=== PATIENT | male | born 1930 | race Hispanic/Latino ===

== ENCOUNTER 2017-04-19 15:18 | Emergency (ER) | payer MEDICARE ==
[2017-04-19] MEDS ORDERED: ASPIRIN PO ONE (16:02)
[2017-04-19 16:35] LABS: Basophils % (Auto) 0.4 % (0.0-1.8); Eosinophils # (Auto) 0.1 K/mm3 (0.0-0.4); Eosinophils % (Auto) 1.5 % (0.0-4.3); Hemoglobin 13.4 gm/dl (11.8-15.2); Lymphocytes # (Auto) 1.2 K/mm3 (1.2-5.4); Mean Corpuscular HGB Conc 34 % (32-34); Mean Corpuscular Hemoglobin 34 pg (28-32); Mean Corpuscular Volume 99 fl (84-94); Monocytes # (Auto) 0.7 K/mm3 (0.0-0.8); Monocytes % (Auto) 7.4 % (0.0-7.3); Platelet Count 192 K/mm3 (140-440); Red Blood Count 3.95 M/mm3 (3.65-5.03); Red Cell Distribution Width 13.9 % (13.2-15.2)
[2017-04-19 16:44] LABS: BUN/Creatinine Ratio 26; Blood Urea Nitrogen 18 mg/dL (9-20); Calcium 9.3 mg/dL (8.4-10.2); Hemolysis Index 12
[2017-04-19] MEDS ORDERED: LIDOCAINE VISCOUS 2% PO PRN (16:54)
[2017-04-19] MEDS ORDERED: MILK OF MAGNESIA PO PRN (16:55)
--- NOTE | 2017-04-19 17:02 | Emergency Department Report ---
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 Has had 2 weeks of recurring chest pain that comes and goes even at rest and saw mainframe architect today , Dr. Elroy Jhaveri. Added 2 meds for which they are not certain but have not started. Also, took 3 nitro at home without improvement but then got better once here. Has reoccurred once with cessation since being here. Lasted about 20 minutes and then went away spontaneously. Did eat today prior to when it started which was around noon. Has DM, HL, HTN, GERD. MD Complaint: chest pain -: week(s) (2) Onset: during rest, during exertion Pain Location: substernal Pain Radiation: LUE Severity scale (0 -10): 8 Quality: pressure Consistency: intermittent Improves With: nothing Worsens With: movement Context: new medications (But has not started.) Other Symptoms: other (none) Treatments Prior to Arrival: aspirin, nitroglycerin Aspirin use within the Past 7 Days: (1) Yes - Related Data On Oral Contraceptives: No Allergies Allergy/AdvReac Type Severity Reaction Status Date / Time No Known Allergies Allergy Unverified 04/19/17 16:01 Heart Score - HEART Score History: Slightly suspicious EKG: Non-specific Age: > 65 Risk factors: > 3 risk factors or hx of atherosclerotic disease Troponin: < normal limit HEART Score: 5 ED Review of Systems ROS: Stated complaint: CHEST PAIN Other details as noted in HPI Constitutional: denies: chills, fever Eyes: denies: eye pain, eye discharge, vision change ENT: denies: ear pain, throat pain Respiratory: denies: cough, shortness of breath, wheezing Cardiovascular: chest pain. denies: palpitations Endocrine: no symptoms reported Gastrointestinal: denies: abdominal pain, nausea, diarrhea Genitourinary: denies: urgency, dysuria Musculoskeletal: denies: back pain, joint swelling, arthralgia Skin: denies: rash, lesions Neurological: denies: headache, weakness, paresthesias Psychiatric: denies: anxiety, depression Hematological/Lymphatic: denies: easy bleeding, easy bruising ED Past Medical Hx - Past Medical History Hx Hypertension: Yes Hx Diabetes: Yes Hx GERD: Yes - Surgical History Hx Coronary Stent: Yes (over 15 years ago) Hx Open Heart Surgery: Yes (2010) - Social History Smoking Status: Former Smoker Substance Use Type: None ED Physical Exam - General Limitations: No Limitations General appearance: alert, in no apparent distress - Head Head exam: Present: atraumatic, normocephalic - Eye Eye exam: Present: normal appearance - ENT ENT exam: Present: mucous membranes moist - Neck Neck exam: Present: normal inspection - Respiratory Respiratory exam: Present: normal lung sounds bilaterally. Absent: respiratory distress - Cardiovascular Cardiovascular Exam: Present: regular rate, normal rhythm. Absent: systolic murmur, diastolic murmur, rubs, gallop - GI/Abdominal GI/Abdominal exam: Present: soft, normal bowel sounds - Rectal Rectal exam: Present: deferred - Extremities Exam Extremities exam: Present: normal inspection - Back Exam Back exam: Present: normal inspection - Neurological Exam Neurological exam: Present: alert, oriented X3 - Psychiatric Psychiatric exam: Present: normal affect, normal mood - Skin Skin exam: Present: warm, dry, intact, normal color. Absent: rash ED Course Vital Signs 04/19/17 04/19/17 04/19/17 15:42 17:45 17:55 Temperature 97.6 F Pulse Rate 64 61 60 Respiratory 18 18 Rate Blood Pressure 155/77 Blood Pressure 171/73 [Right] O2 Sat by Pulse 99 98 Oximetry ED Medical Decision Making - Lab Data Result diagrams: 04/19/17 16:13 04/19/17 16:13 - EKG Data EKG shows normal: sinus rhythm (atrial paced rhythm), intervals (prolonged PA), QRS complexes (RBBB) Rate: normal - EKG Data Interpretation: no acute changes - Radiology Data Radiology results: pending interpreted by me: No acute changes - Medical Decision Making Patient did have reoccurrence of chest pain when I intially saw him that then spontaneously resolved. Initial chest pain started around noon and both sets of cardiac enzymes were normal. Nitro did not initially relieve first episode and the second episode resolved spontaneously without medication. He has had no further chest pain. He is suitable for outpatient follow up with his mainframe architect and will take the medications the mainframe architect gave him today to try since he is a poor candidate for cath per mainframe architect per family statements. We will send him home. Critical care attestation.: If time is entered above; I have spent that time in minutes in the direct care of this critically ill patient, excluding procedure time. ED Disposition Clinical Impression: Chest pain at rest Disposition: DC-01 TO HOME OR SELFCARE Is pt being admited?: No Does the pt Need Aspirin: No Condition: Good Instructions: Chest Pain (ED) Referrals: Elroy Jhaveri [Other] - 3-5 Days Time of Disposition: 20:43
[2017-04-19 21:16] VITALS: BP 128/60
--- NOTE | 2017-04-20 09:08 | XRay Report ---
FINAL REPORT EXAM: XR CHEST 1V AP HISTORY: chest pain n/ a 1605 TECHNIQUE: Chest, portable upright PRIORS: None. FINDINGS: Patient is status post median sternotomy. Pacemaker projects on the left. The heart size is normal. Pulmonary vasculature is not congested. There is some minimal dependent atelectasis at the lung bases. Remaining lungs are clear. There are no pleural effusion seen. There is no evidence of pneumothorax. IMPRESSION: There is no significant abnormality identified.
== END 2017-04-19 21:24 | disposition home or self-care (01) ==
LOC: ED 15:18
DX: R07.89 Other chest pain (principal); I10 Essential (primary) hypertension; E11.9 Type 2 diabetes mellitus without complications; K21.9 Gastro-esophageal reflux disease without esophagitis; Z95.1 Presence of aortocoronary bypass graft; Z87.891 Personal history of nicotine dependence
CPT/HCPCS: 36415; 71045; 80048; 84484; 85025; 93005; 93010; 99284

== ENCOUNTER 2018-06-30 00:13 | Emergency (ER) | payer MEDICARE ==
--- NOTE | 2018-06-30 01:08 | Emergency Department Report ---
ED Male HPI - General Chief complaint: Pain General Stated complaint: GEN.WEAKNESS/BLOOD URINE Time Seen by Provider: 06/30/18 00:35 Source: family, EMS Mode of arrival: Stretcher Limitations: No Limitations - History of Present Illness Initial comments: 87-year-old male with history of dementia presents to ED with hematuria. States patient got up and went to the bathroom to urinate and she noticed that he had gross hematuria. Patient also complained of back pain. reported subjective fever. States patient currently on Plavix. No history of kidney stones. MD Complaint: other (hematuria) -: During the night Severity: moderate Quality: aching blood in urine, fever. denies: nausea/vomiting - Related Data Previous Rx's Medication Instructions Recorded Last Taken Type Ciprofloxacin HCl [Cipro] 500 mg PO BID #14 tablet 06/30/18 Unknown Rx Allergies Allergy/AdvReac Type Severity Reaction Status Date / Time No Known Allergies Allergy Unverified 04/19/17 16:01 ED Review of Systems ROS: Stated complaint: GEN.WEAKNESS/BLOOD URINE Other details as noted in HPI Comment: Unobtainable due to pts medical conditions (hx of dementia) Gastrointestinal: denies: abdominal pain, nausea, vomiting Genitourinary: hematuria Musculoskeletal: back pain ED Past Medical Hx - Past Medical History Previous Medical History?: Yes Hx Hypertension: Yes Hx Heart Attack/AMI: Yes Hx Diabetes: Yes Hx GERD: Yes Additional medical history: Dimentia - Surgical History Hx Coronary Stent: Yes (over 15 years ago) Hx Open Heart Surgery: Yes (2010) - Social History Smoking Status: Never Smoker - Medications Home Medications: Home Medications Medication Instructions Recorded Confirmed Last Taken Type Ciprofloxacin HCl [Cipro] 500 mg PO BID #14 tablet 06/30/18 Unknown Rx ED Physical Exam - General Limitations: No Limitations General appearance: alert, in no apparent distress - Head Head exam: Present: atraumatic, normocephalic - Eye Eye exam: Present: normal appearance - ENT ENT exam: Present: mucous membranes moist - Neck Neck exam: Present: normal inspection - Respiratory Respiratory exam: Present: normal lung sounds bilaterally. Absent: respiratory distress - Cardiovascular Cardiovascular Exam: Present: regular rate, normal rhythm - GI/Abdominal GI/Abdominal exam: Present: soft, tenderness (mild suprapubic tenderness). Absent: distended - Extremities Exam Extremities exam: Present: normal inspection - Back Exam Back exam: Absent: CVA tenderness (R), CVA tenderness (L) - Neurological Exam Neurological exam: Present: alert, other (at baseline per ) - Psychiatric Psychiatric exam: Present: normal affect, normal mood - Skin Skin exam: Present: warm, dry, intact, normal color. Absent: rash ED Course Vital Signs 06/30/18 06/30/18 06/30/18 00:19 00:20 00:27 Temperature 98.5 F 98.5 F Pulse Rate 80 82 Respiratory 18 13 Rate Blood Pressure Blood Pressure 117/76 [Left] O2 Sat by Pulse 94 98 Oximetry 06/30/18 06/30/18 06/30/18 00:31 00:45 01:00 Temperature Pulse Rate 77 86 77 Respiratory 14 14 16 Rate Blood Pressure 127/58 113/62 109/55 Blood Pressure [Left] O2 Sat by Pulse 92 92 92 Oximetry 06/30/18 06/30/18 06/30/18 01:15 01:30 01:45 Temperature Pulse Rate 76 76 75 Respiratory 18 18 19 Rate Blood Pressure 107/58 108/58 108/58 Blood Pressure [Left] O2 Sat by Pulse 91 91 Oximetry 06/30/18 06/30/18 06/30/18 02:00 02:15 02:30 Temperature Pulse Rate 74 73 71 Respiratory 19 17 9 L Rate Blood Pressure 122/59 115/59 121/67 Blood Pressure [Left] O2 Sat by Pulse 91 91 95 Oximetry 06/30/18 02:45 Temperature Pulse Rate 67 Respiratory 12 Rate Blood Pressure 125/62 Blood Pressure [Left] O2 Sat by Pulse 94 Oximetry ED Medical Decision Making - Lab Data Result diagrams: 06/30/18 00:48 06/30/18 00:48 - Radiology Data Radiology results: report reviewed, image reviewed - Medical Decision Making Pt afebrile, serum WBCs normal. Renal function also normal. UA shows large blood w/ [address] negative for any findings of ureteral stones. Will treat as hemorrhagic cystitis. Levaquin given here in ED. [facility] d/c home with prescription for antibiotics and urology follow-up information. - Differential Diagnosis UTI, kidney stone, malignancy Critical care attestation.: If time is entered above; I have spent that time in minutes in the direct care of this critically ill patient, excluding procedure time. ED Disposition Clinical Impression: Hemorrhagic cystitis Disposition: DC-01 TO HOME OR SELFCARE Is pt being admited?: No Condition: Stable Instructions: Urinary Tract Infection in Men (ED) Prescriptions: Ciprofloxacin HCl [Cipro] 500 mg PO BID #14 tablet Referrals: INDIO BROWN MD [Staff Physician] - 3-5 Days Time of Disposition: 04:12
[2018-06-30 01:14] LABS: Basophils % (Auto) 0.6 % (0.0-1.8); Eosinophils % (Auto) 0.5 % (0.0-4.3); Hematocrit 37.5 % (35.5-45.6); Hemoglobin 13.2 gm/dl (11.8-15.2); Lymphocytes # (Auto) 0.7 K/mm3 (1.2-5.4); Lymphocytes % (Auto) 14.1 % (13.4-35.0); Mean Corpuscular HGB Conc 35 % (32-34); Mean Corpuscular Volume 99 fl (84-94); Monocytes # (Auto) 0.6 K/mm3 (0.0-0.8); Monocytes % (Auto) 12.7 % (0.0-7.3); Platelet Count 167 K/mm3 (140-440); Red Blood Count 3.77 M/mm3 (3.65-5.03)
[2018-06-30 01:23] LABS: Alanine Aminotransferase 14 units/L (7-56); Albumin 3.9 g/dL (3.9-5); BUN/Creatinine Ratio 29; Blood Urea Nitrogen 20 mg/dL (9-20); Calcium 9.3 mg/dL (8.4-10.2); Hemolysis Index 11
[2018-06-30 02:12] LABS: Bilirubin,Urine NEG (Negative); Blood,Urine LG (Negative); Color,Urine Yellow (Yellow); Protein,Urine <15 mg/dL mg/dL (Negative)
[2018-06-30 02:15] LABS: RBC,Urine > 182.0 /HPF (0.0-6.0)
[2018-06-30 02:49] VITALS: BP 125/62
[2018-06-30] MEDS ORDERED: LEVAQUIN 500MG/100ML 500 MG/100 ML BAG IV ONE (03:24)
--- NOTE | 2018-06-30 03:44 | Cat Scan Report ---
PROCEDURE: CT ABDOMEN PELVIS WO CON TECHNIQUE: Routine axial imaging was obtained of the abdomen and pelvis without oral or IV contrast. Sagittal and coronal reconstructions were reviewed. HISTORY: hematuria, back pain COMPARISONS: None FINDINGS: Images through lung bases reveal extensive interstitial changes of both lower lobes. There is a large hiatal hernia. The heart is mildly enlarged. The liver, gallbladder and biliary tree appear normal. The pancreas, spleen and adrenal glands appear normal. The kidneys reveal nonobstructing punctate calcifications bilaterally. There is no evidence of hydronephrosis. There are benign cortical cysts in both kidneys measuring up to 2 cm in diameter. The bowel loops are not distended. There are uncomplicated diverticula in the descending and sigmoid colon. The appendix appears normal. There is no evidence of free fluid or adenopathy. There is calcif ication of the abdominal aorta which is normal caliber. The skeletal structures reveal multilevel dis c degeneration in the lumbar spine. There is bilateral arthritic changes of the hip joints. IMPRESSION: No acute process in the abdomen and pelvis. Nonobstructing punctate calcifications in both kidneys. No evidence of hydronephrosis. Small cortical cysts in both kidneys. Chronic lung changes noted in the bases. Large hiatal hernia. Uncomplicated diverticulosis in the descending and sigmoid colon. 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 This document is electronically signed by John Diaz MD., June 30 2018 03:42:18 AM ET
== END 2018-06-30 05:30 | disposition home or self-care (01) ==
LOC: ED 00:13
DX: N30.91 Cystitis, unspecified with hematuria (principal); I10 Essential (primary) hypertension; I25.2 Old myocardial infarction; E11.9 Type 2 diabetes mellitus without complications; K21.9 Gastro-esophageal reflux disease without esophagitis; F03.90 Unspecified dementia, unspecified severity, without behavioral disturbance, psychotic disturbance, mood disturbance, and anxiety
CPT/HCPCS: 36415; 74176; 80053; 81001; 85025; 96365; 96366; 99284; J1956

== ENCOUNTER 2019-03-04 16:54 | Emergency (ER) | payer MEDICARE ==
--- NOTE | 2019-03-04 17:02 | Emergency Department Report ---
ED Neuro Deficit HPI - General Stated Complaint: DIFFICULTY TALKING Time Seen by Provider: 03/04/19 16:56 Source: family, EMS Mode of arrival: Stretcher Limitations: Altered Mental Status - History of Present Illness Initial Comments: Patient is an 88-year-old male that presents emergency room with complaints of difficulty speaking. Patient's symptoms started at 2:30 today. Patient able to move all extremities but unable to speak. states that the patient has been confused for the past 2 days. states that the inability to speak is a new symptom. states that the patient has a history of TIA. -: Sudden Location: dysarthria Presenting Symptoms: Present: Unable to Speak Clearly History of same: Yes Place: home Severity: severe Quality: constant Improves With: none Worsens With: none On Anticoagulants: No Context: sudden onset Associated Symptoms: confusion Treatments Prior to Arrival: none - Related Data Home Medications: Home Medications Medication Instructions Recorded Confirmed Last Taken Acetaminophen [Tylenol] 500 mg PO BID 03/04/19 03/04/19 Unknown B 12 1 tab PO DAILY 03/04/19 03/04/19 Unknown Clopidogrel [Plavix] 75 mg PO QPM 03/04/19 03/04/19 Unknown Isosorbide Dinitrate [Isosorbide 120 mg PO BID 03/04/19 03/04/19 Unknown Dinitrate ER] Metoprolol [Lopressor TAB] 50 mg PO TID 03/04/19 03/04/19 Unknown Pravastatin Sodium [Pravastatin] 10 mg PO QHS 03/04/19 03/04/19 Unknown Ranolazine ER [Ranexa ER] 500 mg PO DAILY 03/04/19 03/04/19 Unknown Ubidecarenone [Co Q10] 100 mg PO DAILY 03/04/19 03/04/19 Unknown Allergies/Adverse Reactions: Allergies Allergy/AdvReac Type Severity Reaction Status Date / Time No Known Allergies Allergy Verified 03/04/19 17:04 ED Review of Systems ROS: Stated complaint: DIFFICULTY TALKING Other details as noted in HPI Comment: All other systems reviewed and negative ED Past Medical Hx - Past Medical History Previous Medical History?: Yes Hx Hypertension: Yes Hx Heart Attack/AMI: Yes Hx Diabetes: Yes Hx GERD: Yes Additional medical history: Dimentia - Surgical History Past Surgical History?: Yes Hx Coronary Stent: Yes (over 15 years ago) Hx Open Heart Surgery: Yes (2010) - Family History Family history: no significant - Social History Smoking Status: Never Smoker Substance Use Type: None - Medications Home Medications: Home Medications Medication Instructions Recorded Confirmed Last Taken Type Acetaminophen [Tylenol] 500 mg PO BID 03/04/19 03/04/19 Unknown History B 12 1 tab PO DAILY 03/04/19 03/04/19 Unknown History Clopidogrel [Plavix] 75 mg PO QPM 03/04/19 03/04/19 Unknown History Isosorbide Dinitrate [Isosorbide 120 mg PO BID 03/04/19 03/04/19 Unknown History Dinitrate ER] Metoprolol [Lopressor TAB] 50 mg PO TID 03/04/19 03/04/19 Unknown History Pravastatin Sodium [Pravastatin] 10 mg PO QHS 03/04/19 03/04/19 Unknown History Ranolazine ER [Ranexa ER] 500 mg PO DAILY 03/04/19 03/04/19 Unknown History Ubidecarenone [Co Q10] 100 mg PO DAILY 03/04/19 03/04/19 Unknown History ED Neuro Physical Exam - General Limitations: Altered Mental Status General appearance: alert, in no apparent distress Suspected Stroke: Yes - Head Head exam: Present: atraumatic, normocephalic - Eye Eye exam: Present: normal appearance - ENT ENT exam: Present: mucous membranes moist - Neck Neck exam: Present: normal inspection - Respiratory Respiratory exam: Present: normal lung sounds bilaterally. Absent: respiratory distress, wheezes, rales - Cardiovascular Cardiovascular Exam: Present: regular rate, normal rhythm. Absent: systolic murmur, diastolic murmur, rubs, gallop - GI/Abdominal GI/Abdominal exam: Present: soft, normal bowel sounds. Absent: distended, tenderness, guarding - Rectal Rectal exam: Present: deferred - Extremities Exam Extremities exam: Present: normal inspection - Back Exam Back exam: Present: normal inspection - Neurological Exam Neurological exam: Present: alert, altered - NIHSS Assessment Interval: Baseline 1a. Level of Consciousness: alert/keenly responsive 1b. LOC Questions: aphasic 1c. LOC Commands: performs tasks correctly 2. Best Gaze: normal 3. Visual: no visual loss 4. Facial Palsy: normal symmetrical movement 5b. Motor Arm Right: no drift 5a. Motor Arm Left: no drift 6a. Motor Leg Left: no drift 6b. Motor Leg Right: no drift 7. Limb Ataxia: absent 8. Sensory: normal 9. Best Language: severe aphasia 10. Dysarthria: normal 11. Extinction/Inattention: no abnormality Total Score: 4 Stroke Severity: Minor Stroke - Psychiatric Psychiatric exam: Present: normal affect, normal mood - Skin Skin exam: Present: warm, dry, intact, normal color. Absent: rash ED Course Vital Signs 03/04/19 03/04/19 03/04/19 17:36 17:57 19:10 Temperature 97.8 F 98.3 F Pulse Rate 70 64 78 Respiratory 18 18 12 Rate Blood Pressure Blood Pressure 166/84 133/59 188/90 [Left] O2 Sat by Pulse 93 92 Oximetry 03/04/19 03/04/19 03/04/19 20:33 21:00 22:01 Temperature 98.2 F Pulse Rate 69 65 63 Respiratory 16 16 17 Rate Blood Pressure 130/62 104/71 Blood Pressure 120/59 [Left] O2 Sat by Pulse 94 91 92 Oximetry 03/04/19 23:13 Temperature 98.2 F Pulse Rate 68 Respiratory 16 Rate Blood Pressure Blood Pressure 124/61 [Left] O2 Sat by Pulse 95 Oximetry - Reevaluation(s) Reevaluation #1: Initial evaluation done. Code stroke initiated. 03/04/19 16:56 Reevaluation #2: Patient is speaking better. Patient initially was aphasic. 03/04/19 17:15 Reevaluation #3: Patient complaining of chest pain. Patient will have an EKG done. Patient will also have repeat troponin. Patient states his chest pain is substernal and nonradiating. 03/04/19 19:35 - Consultations Consultation #1: I Discussed case with neurologist. Neurologist saw the patient. Dr. Oconnor recommends admission for stroke work up and inpatient as well as a CTA of the head and neck in the ER. 03/04/19 17:37 Consultation #2: [facility] on-call physician consulted, I discussed the case with physician and dr steele wants to see the CTA results prior to making a decision on transfer. 03/04/19 18:39 [facility] on-call physician consulted. 03/04/19 20:39 Has been accepted to [facility]. [facility] physician Dr. Steele states that Dr. Jaquez, the [place] hospitalist has accepted the patient to be transferred to [facility]. 03/04/19 20:52 03/04/19 20:53 - Lab Data Result diagrams: 03/04/19 17:16 03/04/19 17:16 Lab Results 03/04/19 03/04/19 03/04/19 Range/Units 17:16 17:16 17:16 WBC 7.0 (4.5-11.0) K/mm3 RBC 3.80 (3.65-5.03) M/mm3 Hgb 13.3 (11.8-15.2) gm/dl Hct 37.9 (35.5-45.6) % MCV 100 H (84-94) fl MCH 35 H (28-32) pg MCHC 35 H (32-34) % RDW 13.9 (13.2-15.2) % Plt Count 201 (140-440) K/mm3 Lymph % (Auto) 23.8 (13.4-35.0) % Grainger % (Auto) 11.2 H (0.0-7.3) % Eos % (Auto) 1.8 (0.0-4.3) % Baso % (Auto) 0.9 (0.0-1.8) % Lymph # 1.7 (1.2-5.4) K/mm3 Grainger # 0.8 (0.0-0.8) K/mm3 Eos # 0.1 (0.0-0.4) K/mm3 Baso # 0.1 (0.0-0.1) K/mm3 Seg Neutrophils % 62.3 (40.0-70.0) % Seg Neutrophils # 4.3 (1.8-7.7) K/mm3 PT 13.7 (12.2-14.9) Sec. INR 1.06 (0.87-1.13) APTT 33.7 (24.2-36.6) Sec. Thrombin Time (15.1-19.6) Sec. Sodium 132 L (137-145) mmol/L Potassium 4.0 (3.6-5.0) mmol/L Chloride 93.7 L (98-107) mmol/L Carbon Dioxide 23 (22-30) mmol/L Anion Gap 19 mmol/L BUN 14 (9-20) mg/dL Creatinine 0.8 (0.8-1.5) mg/dL Estimated GFR > 60 ml/min BUN/Creatinine Ratio 18 % Glucose 152 H (75-100) mg/dL Calcium 9.3 (8.4-10.2) mg/dL Troponin T < 0.010 (0.00-0.029) ng/mL 03/04/19 03/04/19 Range/Units 17:16 20:17 WBC (4.5-11.0) K/mm3 RBC (3.65-5.03) M/mm3 Hgb (11.8-15.2) gm/dl Hct (35.5-45.6) % MCV (84-94) fl MCH (28-32) pg MCHC (32-34) % RDW (13.2-15.2) % Plt Count (140-440) K/mm3 Lymph % (Auto) (13.4-35.0) % Grainger % (Auto) (0.0-7.3) % Eos % (Auto) (0.0-4.3) % Baso % (Auto) (0.0-1.8) % Lymph # (1.2-5.4) K/mm3 Grainger # (0.0-0.8) K/mm3 Eos # (0.0-0.4) K/mm3 Baso # (0.0-0.1) K/mm3 Seg Neutrophils % (40.0-70.0) % Seg Neutrophils # (1.8-7.7) K/mm3 PT (12.2-14.9) Sec. INR (0.87-1.13) APTT (24.2-36.6) Sec. Thrombin Time 16.1 (15.1-19.6) Sec. Sodium (137-145) mmol/L Potassium (3.6-5.0) mmol/L Chloride (98-107) mmol/L Carbon Dioxide (22-30) mmol/L Anion Gap mmol/L BUN (9-20) mg/dL Creatinine (0.8-1.5) mg/dL Estimated GFR ml/min BUN/Creatinine Ratio % Glucose (75-100) mg/dL Calcium (8.4-10.2) mg/dL Troponin T < 0.010 (0.00-0.029) ng/mL - EKG Data -: EKG Interpreted by In EKG shows normal: sinus rhythm, intervals, ST-T waves Rate: normal Interpretation: LVH, other (right bundle-branch block. Wide QRS. [place] deviation.) - Radiology Data Radiology results: report reviewed CHEST 1 VIEW INDICATION / CLINICAL INFORMATION: neuro deficit. COMPARISON: 04/19/2017 FINDINGS: SUPPORT DEVICES: Pacemaker is in place on the left unchanged. HEART / MEDIASTINUM: Normal size with evidence of median sternotomy. LUNGS / PLEURA: Low lung volumes are seen with few increased markings but no infiltrate, edema or effusion. No pneumothorax. ADDITIONAL FINDINGS: No significant additional findings. IMPRESSION: 1. No significant change CT head/brain wo con INDICATION / CLINICAL INFORMATION: 88 years Male; neuro deficits <6hrs or sx present upon awakening. TECHNIQUE: Routine CT head without contrast. All CT scans at this location are performed using CT dose reduction for ALARA by means of automated exposure control. COMPARISON: None. FINDINGS: BRAIN / INTRACRANIAL CONTENTS: No acute hemorrhage, mass effect, midline shift, hydrocephalus, or acute, large territorial infarct. Chronic lacune is seen right thalamus. Extensive periventricular low density areas are seen probably due to microvascular angiopathy. Lateral ventricles and third ventricle are generous suggesting deep central involution. CRANIOCERVICAL JUNCTION: No significant abnormality. ORBITS: No significant abnormality of visualized orbits. SINUSES / MASTOIDS: No significant abnormality of the visualized paranasal sinuses or mastoid air cells. ADDITIONAL FINDINGS: None. IMPRESSION: I do not see an acute parenchymal lesion in the brain. CTA NECK WITH CONTRAST HISTORY: Weakness; difficulty speaking COMPARISON: None. TECHNIQUE: Routine CTA of the neck was performed. 3-D/MIP reformats were postprocessed. Percentage stenosis is determined by direct quantitative measurements of diseased internal carotid artery diameter compared with normal distal internal carotid artery reference segments or by criteria similar to NASCET where applicable.All CT scans at this location are performed using CT dose reduction for ALARA by means of automated exposure control CONTRAST: 100 ml of Omnipaque 350 FINDINGS: Venous contamination limits this CTA especially in the lower neck. Aortic arch: Significant atherosclerotic disease is seen in the aortic arch. Atherosclerotic calcification is seen along the origins of innominate, left common carotid and left subclavian. Cervical vertebral arteries: Dense calcification is seen in the innominate artery at the origin of right vertebral artery. However, extraosseous, foraminal, extraspinal and intradural segments of right vertebral artery are normal. Because of venous contamination, origin of left vertebral artery is not seen adequately. Foraminal segment of left vertebral artery is patent. Intradural segment of left vertebral artery is also patent. Common carotid arteries: Nonstenotic calcified atheromatous plaque is seen in t he mid segment of right common carotid artery. Left common carotid artery is normal. Carotid bifurcations: On the right side, there are findings suggesting previous endarterectomy. Right carotid bifurcation is normal. Densely calcified atheromatous plaque is seen in the left carotid bifurcation significant stenoses (more than 80%) of the distal common and proximal internal carotid artery seen Cervical internal carotid arteries: No significant abnormality. Additional findings: None. 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 - Medical Decision Making Patient is 88-year-old male that presents emergency room with complaints of aphasia and confusion for the past 2 days. Patient's at bedside. Abby ent's states she believes the aphasia started sometime today. Due to the fact we are unclear exactly when the patient started the patient is not a candidate for TPA. Neurology saw the patient. Patient had a CTA of the head and neck. CT of the head and neck shows severe stenosis. Patient's head CT negative. Patient's EKG review. Patient's labs unremarkable. Patient is a [facility] patient was transferred to [facility]. - Differential Diagnosis stroke. TIA. Weakness. Confusion. Critical Care Time: Yes Critical care time in (mins) excluding proc time.: 80 Critical care attestation.: If time is entered above; I have spent that time in minutes in the direct care of this critically ill patient, excluding procedure time. Critical Care Time: 80 minutes ED Disposition Clinical Impression: Weakness, Difficulty speaking, Aphasia Altered mental state Qualifiers: Altered mental status type: unspecified Qualified Code(s): R41.82 - Altered mental status, unspecified Chest pain Qualifiers: Chest pain type: unspecified Qualified Code(s): R07.9 - Chest pain, unspecified Carotid stenosis Qualifiers: Laterality: unspecified laterality Qualified Code(s): I65.29 - Occlusion and stenosis of unspecified carotid artery Disposition: DC/TX-70 ANOTHER TYPE HLTHCARE Is pt being admited?: No Does the pt Need Aspirin: No Condition: Critical Time of Disposition: 20:57
[2019-03-04 17:23] LABS: Basophils # (Auto) 0.1 K/mm3 (0.0-0.1); Basophils % (Auto) 0.9 % (0.0-1.8); Eosinophils # (Auto) 0.1 K/mm3 (0.0-0.4); Eosinophils % (Auto) 1.8 % (0.0-4.3); Hematocrit 37.9 % (35.5-45.6); Hemoglobin 13.3 gm/dl (11.8-15.2); Lymphocytes # (Auto) 1.7 K/mm3 (1.2-5.4); Lymphocytes % (Auto) 23.8 % (13.4-35.0); Mean Corpuscular HGB Conc 35 % (32-34); Mean Corpuscular Volume 100 fl (84-94); Monocytes # (Auto) 0.8 K/mm3 (0.0-0.8); Monocytes % (Auto) 11.2 % (0.0-7.3); Platelet Count 201 K/mm3 (140-440); Red Cell Distribution Width 13.9 % (13.2-15.2)
[2019-03-04 17:33] LABS: INR 1.06 (0.87-1.13)
[2019-03-04 17:34] LABS: Partial Thromboplastin Time 33.7 Sec. (24.2-36.6)
[2019-03-04] MEDS ORDERED: ASPIRIN 325 MG TAB PO ONE (17:38)
[2019-03-04] MEDS ORDERED: hydrALAZINE 20 MG/1 ML INJ IV ONE (17:38)
[2019-03-04] MEDS ORDERED: ASPIRIN 300 MG RECT SUPP PR ONE (17:56)
--- NOTE | 2019-03-04 17:57 | Cat Scan Report ---
CT head/brain wo con INDICATION / CLINICAL INFORMATION: 88 years Male; neuro deficits <6hrs or sx present upon awakening. TECHNIQUE: Routine CT head without contrast. All CT scans at this location are performed using CT dos e reduction for ALARA by means of automated exposure control. COMPARISON: None. FINDINGS: BRAIN / INTRACRANIAL CONTENTS: No acute hemorrhage, mass effect, midline shift, hydrocephalus, or acu te, large territorial infarct. Chronic lacune is seen right thalamus. Extensive periventricular low d ensity areas are seen probably due to microvascular angiopathy. Lateral ventricles and third ventricl e are generous suggesting deep central involution. CRANIOCERVICAL JUNCTION: No significant abnormality. ORBITS: No significant abnormality of visualized orbits. SINUSES / MASTOIDS: No significant abnormality of the visualized paranasal sinuses or mastoid air rell ls. ADDITIONAL FINDINGS: None. IMPRESSION: I do not see an acute parenchymal lesion in the brain. Signer Name: Bandar Mendoza MD Signed: 03/04/2019 5:53 PM Workstation Name: [id number]
--- NOTE | 2019-03-04 18:03 | XRay Report ---
CHEST 1 VIEW INDICATION / CLINICAL INFORMATION: neuro deficit. COMPARISON: 04/19/2017 FINDINGS: SUPPORT DEVICES: Pacemaker is in place on the left unchanged. HEART / MEDIASTINUM: Normal size with evidence of median sternotomy. LUNGS / PLEURA: Low lung volumes are seen with few increased markings but no infiltrate, edema or eff usion. No pneumothorax. ADDITIONAL FINDINGS: No significant additional findings. IMPRESSION: 1. No significant change Signer Name: Levi Kim MD Signed: 03/04/2019 5:59 PM Workstation Name: [id number]
[2019-03-04 18:08] LABS: BUN/Creatinine Ratio 18; Blood Urea Nitrogen 14 mg/dL (9-20); Calcium 9.3 mg/dL (8.4-10.2); Hemolysis Index 5
[2019-03-04] MEDS ORDERED: ASPIRIN 81 MG TAB CHEW PO ONE (18:48)
--- NOTE | 2019-03-04 18:48 | Emergency Department Report ---
ED Neuro Deficit HPI - General Chief Complaint: Neuro Symptoms/Deficit Stated Complaint: DIFFICULTY TALKING Time Seen by Provider: 03/04/19 16:56 Source: family, EMS Mode of arrival: Stretcher Limitations: Altered Mental Status - History of Present Illness Initial Comments: [facility] Tele[facility]urology Consult Services TeleStroke Metrics: LKW: Unknown. Door Time: 1654 [facility] Contacted: 1701 [facility] at Bedside: 1710 NIHSS: 1716 Decision on Alteplase: has deferred IV alteplase administration due to concerns of internal bleeding and his last known well time not being definitively known. Interventional Candidate: Likely not a candidate as his symptoms are not consistent with a large vessel proximal occlusion. CTA head and neck are in process. Chief Complaint: Altered mental status HPI: Asked to see this patient in emergent telemedicine consultation utilizing interactive audio and video technologies. Consultation was performed with assistance of ancillary / medical staff at bedside. Verbal consent to perform the examination with telemedicine was obtained. Patients agreed to proceed with the consultation for acute stroke protocol. 88-year-old right-handed white male who was brought to the emergency room by EMS as a stroke alert for altered mental status. Patient's eventually came to bedside to assist with history. Patient is currently on aspirin and Plavix. She reports that the patient has had 3 prior TIAs in the past. His first episode involved right sided weakness. There was another episode that involved right foot weakness. His last episode was just acute confusion. also states the patient has been diagnosed with vascular dementia. noted that the patient started being confused yesterday. He would have moments where he would just stare at her and not respond. However, she never noticed any focal weakness. Then today around 2:30 PM, they were sitting watching TV. He suddenly grabbed her hand and was just staring at her. He wo uld not talk at all. The tried to get the patient to talk to both his daughter and son over the phone, but the patient still not respond. Therefore, she called 911. Currently on examination, the patient remains pleasantly confused. He had no obvious neglect. He was able to recognize his . She states he would usually not know what year it is but should know the hospital. He was unable to identify that he was in the hospital. He was able to follow some commands overall. Patient had very mild right arm drifting, but had a tough time keeping his right leg up. He also had some mild slurred speech. Head CT eventually came back negative. I reviewed with the about the availability of IV alteplase. I reviewed with her about some of the potential side effects of IV alteplase to include an approximate 6% risk of symptomatic intracranial hemorrhage, internal bleeding, and/or angioedema. At the end of the day, the has deferred IV alteplase administration as his last known well time is not definitely known. This is factoring his confusion that started yesterday. was in agreement with not to proceed with IV alteplase administration. PMH: Prior TIAs x3; hypertension; diabetes mellitus; coronary artery disease status post CABG; pacemaker placement; and vascular dementia. SOC: Negative x3. Patient is . He uses a walker at baseline. FMH: Negative for stroke. ROS: 13 point review of systems were reviewed with the patients , and are all negative with the exception of the aforementioned in the history of present illness. VS: Temperature is 97.8 F, pulse 70, respiration 18, blood pressure 166/84, oxygen saturation 93% Exam: Patient is in no apparent distress. Patient appears as stated age. No obvious acute respiratory or cardiac distress. Patient is well groomed and well-nourished. 1a- LOC: Keenly responsive - 0 1b- LOC questions: Answers neither questions correctly - 2 1c- LOC commands- Performs both tasks correctly- 0 2- Gaze: Normal; no gaze paresis or gaze deviation - 0 3- Visual Navarro: normal, no Visual field deficit - 0 4- Facial movements: no facial palsy - 0 5- Upper limb motor right arm drift - 1 6- Lower limb motor right leg drift - 3 7- Limb Coordination: absent ataxia - 0 8- Sensory: no sensory loss - 0 9- Language - Mild aphasia - 1 10- Speech - Mild dysarthria - 1 11- Neglect / Extinction - none found - 0 NIHSS score: 8 Diagnostic Data: CT of the head showed no acute intracranial process WBC 7, hemoglobin 13.3, platelets 201, coagulation studies within normal limits, sodium 132, potassium 4, BUN 14, creatinine 0.8, blood glucose 152 Medical Data Reviewed: 1.Data?reviewed include clinical labs, radiology,?and medical tests; 2.Tests?results discussed w/performing or interpreting physician; 3.Obtaining/reviewing old medical records; 4.Obtaining?case history from another source; 5.Independent?review of image, tracing, or specimen. Medical Decision Making: - Extensive number of diagnosis or management options are considered below. - Extensive amount of complex data reviewed. - High risk of complication and/or morbidity or mortality are associated with differential diagnostic considerations below. - There may be?uncertain?outcome and increased probability of prolonged functio nal impairment or high probability of severe prolonged functional impairment associated with some of these differential diagnosis. Differential Diagnosis for Stroke: 1.?Cardioembolic?stroke 2. Small vessel disease/lacune 3. Thromboembolic, sszhvt-[id number] mechanism 4.?Hypercoagulable?state-related infarct 5. Transient ischemic attack 6. Thrombotic mechanism, large artery disease Assessment: 1. Altered mental status with possible left MCA stroke 2. Prior TIAs 3. Hypertension 4. Diabetes Mellitus 5. Coronary artery disease status post CABG 6. Vascular dementia 7. Pacemaker placement Recommendations: Patient can be admitted to the hospital for further work-up of his symptoms. Maintain the patient on aspirin and Plavix for now. Allow permissive hypertension. Metabolic and infectious work-up per primary team. Can check MRI brain without contrast if pacemaker is MRI compatible. If it is not MRI compatible, then can repeat head CT in 24 hours to see if he has any new evolving cerebral ischemia. CTA head and neck have been ordered and are in process. Check echocardiogram to gauge his cardiac function. Maintain the patient on telemetry to look for paroxysmal atrial fibrillation. Check hemoglobin A1c and lipid panel. Consult PT, OT, and ST. Continue supportive care. Plan of care was discussed with the patient's . Thank you for allowing [facility] to participate in the care of your patient. Please call me, Dr. Copeland, with any questions at [phone]. Case discussed with the ER staff and Dr. Glover. Critical Care notation: I was called to see this critical patient emergently. I personally evaluated this critical patient for acute stroke evaluation, and determining their eligibility for IV Alteplase and interventional therapies. I have spent approximately 15 minutes with the patient, including time at bedside, time discussing the case with other physicians, reviewing plan of care, and time independently reviewing the records and scans. Location: dysarthria History of same: Yes Place: home Severity: severe Quality: constant Improves With: none Worsens With: none On Anticoagulants: No - Related Data Home Medications: Home Medications Medication Instructions Recorded Confirmed Last Taken Acetaminophen [Tylenol] 500 mg PO BID 03/04/19 03/04/19 Unknown B 12 1 tab PO DAILY 03/04/19 03/04/19 Unknown Clopidogrel [Plavix] 75 mg PO QPM 03/04/19 03/04/19 Unknown Isosorbide Dinitrate [Isosorbide 120 mg PO BID 03/04/19 03/04/19 Unknown Dinitrate ER] Metoprolol [Lopressor TAB] 50 mg PO TID 03/04/19 03/04/19 Unknown Pravastatin Sodium [Pravastatin] 10 mg PO QHS 03/04/19 03/04/19 Unknown Ranolazine ER [Ranexa ER] 500 mg PO DAILY 03/04/19 03/04/19 Unknown Ubidecarenone [Co Q10] 100 mg PO DAILY 03/04/19 03/04/19 Unknown Allergies/Adverse Reactions: Allergies Allergy/AdvReac Type Severity Reaction Status Date / Time No Known Allergies Allergy Verified 03/04/19 17:04 ED Review of Systems ROS: Stated complaint: DIFFICULTY TALKING Other details as noted in HPI ED Past Medical Hx - Past Medical History Previous Medical History?: Yes Hx Hypertension: Yes Hx Heart Attack/AMI: Yes Hx Diabetes: Yes Hx GERD: Yes Additional medical history: Dimentia - Surgical History Past Surgical History?: Yes Hx Coronary Stent: Yes (over 15 years ago) Hx Open Heart Surgery: Yes (2010) Hx Pacemaker: Yes - Social History Smoking Status: Never Smoker Substance Use Type: None - Medications Home Medications: Home Medications Medication Instructions Recorded Confirmed Last Taken Type Acetaminophen [Tylenol] 500 mg PO BID 03/04/19 03/04/19 Unknown History B 12 1 tab PO DAILY 03/04/19 03/04/19 Unknown History Clopidogrel [Plavix] 75 mg PO QPM 03/04/19 03/04/19 Unknown History Isosorbide Dinitrate [Isosorbide 120 mg PO BID 03/04/19 03/04/19 Unknown History Dinitrate ER] Metoprolol [Lopressor TAB] 50 mg PO TID 03/04/19 03/04/19 Unknown History Pravastatin Sodium [Pravastatin] 10 mg PO QHS 03/04/19 03/04/19 Unknown History Ranolazine ER [Ranexa ER] 500 mg PO DAILY 03/04/19 03/04/19 Unknown History Ubidecarenone [Co Q10] 100 mg PO DAILY 03/04/19 03/04/19 Unknown History ED Neuro Physical Exam - General Limitations: Altered Mental Status General appearance: alert, in no apparent distress Suspected Stroke: Yes - NIHSS Assessment Interval: Baseline 1a. Level of Consciousness: alert/keenly responsive 1b. LOC Questions: answers no questions correctly 1c. LOC Commands: performs tasks correctly 2. Best Gaze: normal 3. Visual: no visual loss 4. Facial Palsy: normal symmetrical movement 5b. Motor Arm Right: drift 5a. Motor Arm Left: no drift 6a. Motor Leg Left: no drift 6b. Motor Leg Right: no gravity effort 7. Limb Ataxia: absent 8. Sensory: normal 9. Best Language: mild/moderate aphasia 10. Dysarthria: mild/moderate dysarthria 11. Extinction/Inattention: no abnormality Total Score: 8 Stroke Severity: Moderate Stroke ED Course Vital Signs 03/04/19 03/04/19 17:36 17:57 Temperature 97.8 F Pulse Rate 70 64 Respiratory 18 18 Rate Blood Pressure 166/84 133/59 [Left] O2 Sat by Pulse 93 Oximetry - Lab Data Result diagrams: 03/04/19 17:16 03/04/19 17:16 Lab Results 03/04/19 03/04/19 03/04/19 Range/Units 17:16 17:16 17:16 WBC 7.0 (4.5-11.0) K/mm3 RBC 3.80 (3.65-5.03) M/mm3 Hgb 13.3 (11.8-15.2) gm/dl Hct 37.9 (35.5-45.6) % MCV 100 H (84-94) fl MCH 35 H (28-32) pg MCHC 35 H (32-34) % RDW 13.9 (13.2-15.2) % Plt Count 201 (140-440) K/mm3 Lymph % (Auto) 23.8 (13.4-35.0) % [place] % (Auto) 11.2 H (0.0-7.3) % Eos % (Auto) 1.8 (0.0-4.3) % Baso % (Auto) 0.9 (0.0-1.8) % Lymph # 1.7 (1.2-5.4) K/mm3 [place] # 0.8 (0.0-0.8) K/mm3 Eos # 0.1 (0.0-0.4) K/mm3 Baso # 0.1 (0.0-0.1) K/mm3 Seg Neutrophils % 62.3 (40.0-70.0) % Seg Neutrophils # 4.3 (1.8-7.7) K/mm3 PT 13.7 (12.2-14.9) Sec. INR 1.06 (0.87-1.13) APTT 33.7 (24.2-36.6) Sec. Thrombin Time (15.1-19.6) Sec. Sodium 132 L (137-145) mmol/L Potassium 4.0 (3.6-5.0) mmol/L Chloride 93.7 L (98-107) mmol/L Carbon Dioxide 23 (22-30) mmol/L Anion Gap 19 mmol/L BUN 14 (9-20) mg/dL Creatinine 0.8 (0.8-1.5) mg/dL Estimated GFR > 60 ml/min BUN/Creatinine Ratio 18 % Glucose 152 H (75-100) mg/dL Calcium 9.3 (8.4-10.2) mg/dL Troponin T < 0.010 (0.00-0.029) ng/mL 03/04/ Range/Units 17:16 WBC (4.5-11.0) K/mm3 RBC (3.65-5.03) M/mm3 Hgb (11.8-15.2) gm/dl Hct (35.5-45.6) % MCV (84-94) fl MCH (28-32) pg MCHC (32-34) % RDW (13.2-15.2) % Plt Count (140-440) K/mm3 Lymph % (Auto) (13.4-35.0) % [place] % (Auto) (0.0-7.3) % Eos % (Auto) (0.0-4.3) % Baso % (Auto) (0.0-1.8) % Lymph # (1.2-5.4) K/mm3 [place] # (0.0-0.8) K/mm3 Eos # (0.0-0.4) K/mm3 Baso # (0.0-0.1) K/mm3 Seg Neutrophils % (40.0-70.0) % Seg Neutrophils # (1.8-7.7) K/mm3 PT (12.2-14.9) Sec. INR (0.87-1.13) APTT (24.2-36.6) Sec. Thrombin Time 16.1 (15.1-19.6) Sec. Sodium (137-145) mmol/L Potassium (3.6-5.0) mmol/L Chloride (98-107) mmol/L Carbon Dioxide (22-30) mmol/L Anion Gap mmol/L BUN (9-20) mg/dL Creatinine (0.8-1.5) mg/dL Estimated GFR ml/min BUN/Creatinine Ratio % Glucose (75-100) mg/dL Calcium (8.4-10.2) mg/dL Troponin T (0.00-0.029) ng/mL Critical care attestation.: If time is entered above; I have spent that time in minutes in the direct care of this critically ill patient, excluding procedure time. ED Disposition Clinical Impression: Altered mental state Disposition: DC-09 OP ADMIT IP TO THIS HOSP Is pt being admited?: Yes Does the pt Need Aspirin: Yes Condition: Stable
--- NOTE | 2019-03-04 20:27 | Cat Scan Report ---
CTA NECK WITH CONTRAST HISTORY: Weakness; difficulty speaking COMPARISON: None. TECHNIQUE: Routine CTA of the neck was performed. 3-D/MIP reformats were postprocessed. Percentage s tenosis is determined by direct quantitative measurements of diseased internal carotid artery diamete r compared with normal distal internal carotid artery reference segments or by criteria similar to NA SCET where applicable.All CT scans at this location are performed using CT dose reduction for ALARA b y means of automated exposure control CONTRAST: 100 ml of Omnipaque 350 FINDINGS: Venous contamination limits this CTA especially in the lower neck. Aortic arch: Significant atherosclerotic disease is seen in the aortic arch. Atherosclerotic calcific ation is seen along the origins of innominate, left common carotid and left subclavian. Cervical vertebral arteries: Dense calcification is seen in the innominate artery at the origin of ri ght vertebral artery. However, extraosseous, foraminal, extraspinal and intradural segments of right vertebral artery are normal. Because of venous contamination, origin of left vertebral artery is not seen adequately. Foraminal se gment of left vertebral artery is patent. Intradural segment of left vertebral artery is also patent. Common carotid arteries: Nonstenotic calcified atheromatous plaque is seen in the mid segment of righ t common carotid artery. Left common carotid artery is normal. Carotid bifurcations: On the right side, there are findings suggesting previous endarterectomy. Righ t carotid bifurcation is normal. Densely calcified atheromatous plaque is seen in the left carotid bi furcation significant stenoses (more than 80%) of the distal common and proximal internal carotid art tamir seen Cervical internal carotid arteries: No significant abnormality. Additional findings: None. 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 Signer Name: Bandar Mendoza MD Signed: 03/04/2019 8:23 PM Workstation Name: [id number]
--- NOTE | 2019-03-04 20:38 | Cat Scan Report ---
CTA HEAD WITH CONTRAST HISTORY: Weakness; speech difficulty COMPARISON: None. TECHNIQUE: Routine non-contrast CT Head, CTA of the head and post-contrast CT Head are performed. 3-D /MIP reformats postprocessed. All CT scans at this location are performed using CT dose reduction for ALARA by means of automated exposure control CONTRAST: 100 ml of Omnipaque 350 FINDINGS: CTA Head: Intracranial vertebral arteries: Atherosclerotic calcification is seen intradural segments of both ve rtebral arteries. Decreased CT flow density is seen in the left vertebral artery. Basilar artery: No significant abnormality. Posterior cerebral arteries: No significant abnormality. Intracranial internal carotid arteries: Dense calcification is seen in the internal carotid arteries from clinoidal to the ophthalmic segment. I am unable to evaluate the lumen of the internal carotid a rtery at these levels. Communicating segment of right internal carotid artery is normal. On the left side, approximately 60 % stenosis seen in the communicating segment. Anterior cerebral arteries: No significant abnormality. Middle cerebral arteries: No significant abnormality. Dural venous sinuses:Not optimally opacified. No significant abnormality. Additional findings: None. IMPRESSION: 1. [place] of [place] is normal. Both the M1 segments are normal Dense calcification in the internal carotid arteries from skull base to ophthalmic segment Signer Name: Bandar Mendoza MD Signed: 03/04/2019 8:34 PM Workstation Name: [id number]
[2019-03-04 23:13] VITALS: BP 124/61
== END 2019-03-04 23:14 | disposition other institution (70) ==
LOC: ED 16:54
DX: I65.29 Occlusion and stenosis of unspecified carotid artery (principal); R07.89 Other chest pain; R41.82 Altered mental status, unspecified; R47.01 Aphasia; I10 Essential (primary) hypertension; I25.2 Old myocardial infarction; I25.10 Atherosclerotic heart disease of native coronary artery without angina pectoris; E11.9 Type 2 diabetes mellitus without complications; K21.9 Gastro-esophageal reflux disease without esophagitis; F03.90 Unspecified dementia, unspecified severity, without behavioral disturbance, psychotic disturbance, mood disturbance, and anxiety; Z95.5 Presence of coronary angioplasty implant and graft; Z98.890 Other specified postprocedural states; Z79.899 Other long term (current) drug therapy; Z95.0 Presence of cardiac pacemaker; Z95.1 Presence of aortocoronary bypass graft; Z86.73 Personal history of transient ischemic attack (TIA), and cerebral infarction without residual deficits
CPT/HCPCS: 36415; 70450; 70496; 70498; 71045; 80048; 82962; 84484; 85025; 85610; 85670; 85730; 93005; 93010; 99291; 99292; Q9967

== ENCOUNTER 2019-06-15 12:50 | Inpatient (IN) | payer MEDICARE ==
--- NOTE | 2019-06-15 13:04 | Emergency Department Report ---
ED Neuro Deficit HPI - General Chief Complaint: Neuro Symptoms/Deficit Stated Complaint: STROKE Time Seen by Provider: 06/15/19 12:58 Source: family, EMS, RN notes reviewed, old records reviewed Mode of arrival: Stretcher Limitations: Altered Mental Status, Physical Limitation - History of Present Illness Initial Comments: Primary care doctor: Cain cheung The patient is an 88-year-old gentleman. The patient has a history of vascular dementia, stroke versus TIA, high cholesterol, and diabetes. He is brought to the hospital with his and EMS with a concern of having a stroke. The patient is demented and a poor historian, and cannot describe exacerbating or relieving factors. As per his , his last known well time is 12:15 PM. Stroke deficits include left-sided weakness in the arm and leg, facial droop His symptoms have apparently been constant for the past hour. As per the , there were no exacerbating or relieving factors. No recent trauma, surgeries, strokes, and the patient takes aspirin and Plavix, but otherwise, does not take systemic anticoagulation. Patient not able to describe qualitative nature of his symptoms, exacerbating or relieving factors. -: Sudden, hour(s) Location: left face, left arm, left leg Presenting Symptoms: Present: Weak/Paralyzed One Side, Facial Droop/Numbness History of same: Yes Place: other Quality: other Improves With: other Worsens With: other On Anticoagulants: Yes Context: sudden onset, other Associated Symptoms: other (As per ) - Related Data Home Medications: Home Medications Medication Instructions Recorded Confirmed Last Taken Clopidogrel [Plavix] 75 mg PO QPM 03/04/19 06/15/19 06/14/19 18:00 Isosorbide Dinitrate [Isosorbide 120 mg PO BID 03/04/19 06/15/19 06/15/19 09:00 Dinitrate ER] Metoprolol [Lopressor TAB] 50 mg PO TID 03/04/19 06/15/19 06/15/19 09:00 Pravastatin Sodium [Pravastatin] 10 mg PO QHS 03/04/19 06/15/19 06/14/19 18:00 Ranolazine ER [Ranexa ER] 500 mg PO DAILY 03/04/19 06/15/19 06/14/19 18:00 Ubidecarenone [Co Q10] 100 mg PO DAILY 03/04/19 06/15/19 06/15/19 09:00 Aspirin [Aspirin BABY CHEW TAB] 81 mg PO DAILY 06/15/19 06/15/19 06/14/19 18:00 Cyanocobalamin (Vitamin B-12) 1,000 mcg PO DAILY 06/15/19 06/15/19 06/15/19 09:00 [Vitamin B-12] Nitroglycerin [Nitrostat] 0.4 mg SL Q5M PRN 06/15/19 06/15/19 06/09/19 19:12 Ranitidine HCl 300 mg PO DAILY 06/15/19 06/15/19 06/15/19 09:00 metFORMIN 500 mg PO BID 06/15/19 06/15/19 06/15/19 09:00 Allergies/Adverse Reactions: Allergies Allergy/AdvReac Type Severity Reaction Status Date / Time No Known Allergies Allergy Verified 03/04/19 17:04 ED Review of Systems ROS: Stated complaint: STROKE Other details as noted in HPI Comment: Unobtainable due to pts medical conditions Neurological: weakness ED Past Medical Hx - Past Medical History Hx Hypertension: Yes Hx Heart Attack/AMI: Yes Hx Diabetes: Yes Hx GERD: Yes Additional medical history: Dementia - Surgical History Hx Coronary Stent: Yes (over 15 years ago) Hx Open Heart Surgery: Yes (2010) Hx Pacemaker: Yes - Social History Smoking Status: Never Smoker - Medications Home Medications: Home Medications Medication Instructions Recorded Confirmed Last Taken Type Clopidogrel [Plavix] 75 mg PO QPM 03/04/19 06/15/19 06/14/19 18:00 History Isosorbide Dinitrate [Isosorbide 120 mg PO BID 03/04/19 06/15/19 06/15/19 09:00 History Dinitrate ER] Metoprolol [Lopressor TAB] 50 mg PO TID 03/04/19 06/15/19 06/15/19 09:00 History Pravastatin Sodium [Pravastatin] 10 mg PO QHS 03/04/19 06/15/19 06/14/19 18:00 History Ranolazine ER [Ranexa ER] 500 mg PO DAILY 03/04/19 06/15/19 06/14/19 18:00 History Ubidecarenone [Co Q10] 100 mg PO DAILY 11/06/15/19 06/15/19 09:00 History Aspirin [Aspirin BABY CHEW TAB] 81 mg PO DAILY 06/15/19 06/15/19 06/14/19 18:00 History Cyanocobalamin (Vitamin B-12) 1,000 mcg PO DAILY 06/15/19 06/15/19 06/15/19 09:00 History [Vitamin B-12] Nitroglycerin [Nitrostat] 0.4 mg SL Q5M PRN 06/15/19 06/15/19 06/09/19 19:12 History Ranitidine HCl 300 mg PO DAILY 06/15/19 06/15/19 06/15/19 09:00 History metFORMIN 500 mg PO BID 06/15/19 06/15/19 06/15/19 09:00 History ED Neuro Physical Exam - General Limitations: Altered Mental Status, Physical Limitation General appearance: alert, anxious Suspected Stroke: Yes - Head Head exam: Present: atraumatic, normocephalic - Eye Eye exam: Present: normal appearance, EOMI - ENT ENT exam: Present: normal exam, normal orophraynx, mucous membranes moist, normal external ear exam - Neck Neck exam: Present: normal inspection, full ROM. Absent: tenderness, meningismus - Respiratory Respiratory exam: Present: normal lung sounds bilaterally. Absent: respiratory distress - Cardiovascular Cardiovascular Exam: Present: regular rate, normal rhythm, normal heart sounds. Absent: bradycardia, tachycardia, irregular rhythm, systolic murmur, diastolic murmur, rubs, gallop - GI/Abdominal GI/Abdominal exam: Present: soft. Absent: distended, tenderness, guarding, rebound, rigid, pulsatile mass - Rectal Rectal exam: Present: deferred - Extremities Exam Extremities exam: Present: normal inspection, other (2+ pulses noted in the bilateral upper and lower extremities. There is no palpable cord. negative Homans sign. Muscular compartments are soft. The pelvis is stable.) - Back Exam Back exam: Present: normal inspection, full ROM. Absent: tenderness, CVA tenderness (R), CVA tenderness (L), paraspinal tenderness, vertebral tenderness - Neurological Exam Neurological exam: Present: alert, oriented X3 - NIHSS Assessment Interval: Baseline 1a. Level of Consciousness: arousable/minor stimuli 1b. LOC Questions: answers 1 question correctly 1c. LOC Commands: performs 1 task correctly 2. Best Gaze: partial gaze palsy 3. Visual: partial hemianopia 4. Facial Palsy: minor paralysis 5b. Motor Arm Right: drift 5a. Motor Arm Left: no movement 6a. Motor Leg Left: no movement 6b. Motor Leg Right: drift 7. Limb Ataxia: absent (Unable to assess) 8. Sensory: mild/moderate sensory loss (Unable to assess) 9. Best Language: mild/moderate aphasia 10. Dysarthria: mild/moderate dysarthria 11. Extinction/Inattention: visual/tactile inattention Total Score: 20 Stroke Severity: Moderate to Severe Stroke - Psychiatric Psychiatric exam: Present: anxious - Skin Skin exam: Present: warm, dry, intact, normal color. Absent: rash ED Course Vital Signs 06/15/19 06/15/19 06/15/19 13:21 14:13 14:22 Temperature 97.5 F L Pulse Rate 61 69 66 Respiratory 16 16 Rate Blood Pressure 123/86 Blood Pressure 173/78 160/74 [Left] O2 Sat by Pulse 94 95 Oximetry 06/15/19 06/15/19 15:03 17:16 Temperature Pulse Rate 64 Respiratory 16 Rate Blood Pressure Blood Pressure 105/47 [Left] O2 Sat by Pulse 96 94 Oximetry - Reevaluation(s) Reevaluation #1: 06/15/19 13:16 Differential diagnosis, including but not limited to: Stroke, pneumonia, urinary tract infection Assessment and plan: 88-year-old gentleman presenting with left-sided weakness, neglect, facial droop, suspicious for acute ischemic stroke. Accu-Chek within normal limits, and he does not have medical contraindications to TPA administration at this time. He does not have decision-making capacity secondary to vascular dementia. His who is at the bedside is alert, oriented, clinically sober, and has decision-making capacity. She indicates the patient is DO NOT RESUSCITATE, DO NOT INTUBATE as per his wishes. We talked about the risks and benefits of TPA, including the risk of fatal bleeding event, hemorrhagic conversion, GI bleed, and . His is alert and oriented, and has given verbal consent for tPA administration. This is witnessed by multiple nurses, including Jaime Bolivar, and Marquita Robin. In addition, the patient was seen by consulting stroke neurology, Dr. Medellin, who also concurred that the patient met criteria for TPA administration. An emergency CTA head and neck have been ordered to assess for possible large vessel occlusion. Patient had a CTA head and neck done at this hospital February 2019, which showed left-sided disease and stenosis. At the moment, we are awaiting formal CT interpretation from radiology, although our gross interpretation of the head CT appears to be negative for acute findings. Reevaluation #2: 06/15/19 14:33 Dr Yunier Holman to admit he states he will follow up the cta head/neck - Consultations Consultation #1: 06/15/19 13:45 Discussed with [place] physician, Dr. Gillette, who advises that since patient received TPA, he should not be transferred for at least 24 hours, unless he requires emergent endovascular intervention for large vessel occlusion. Therefore, she authorizes the patient to be admitted to this hospital, if his CT angiogram does not demonstrate any findings that would require emergency intervention for large vessel occlusion. - Lab Data Result diagrams: 06/16/19 03:57 06/16/19 03:57 Lab Results 06/15/19 06/15/19 06/15/19 Range/Units 13:11 13:11 13:11 WBC 6.7 (4.5-11.0) K/mm3 RBC 3.79 (3.65-5.03) M/mm3 Hgb 13.0 (11.8-15.2) gm/dl Hct 37.4 (35.5-45.6) % MCV 99 H (84-94) fl MCH 34 H (28-32) pg MCHC 35 H (32-34) % RDW 14.0 (13.2-15.2) % Plt Count 221 (140-440) K/mm3 Lymph % (Auto) 23.1 (13.4-35.0) % [place] % (Auto) 13.6 H (0.0-7.3) % Eos % (Auto) 2.4 (0.0-4.3) % Baso % (Auto) 0.9 (0.0-1.8) % Lymph # 1.5 (1.2-5.4) K/mm3 [place] # 0.9 H (0.0-0.8) K/mm3 Eos # 0.2 (0.0-0.4) K/mm3 Baso # 0.1 (0.0-0.1) K/mm3 Seg Neutrophils % 60.0 (40.0-70.0) % Seg Neutrophils # 4.0 (1.8-7.7) K/mm3 PT 13.6 (12.2-14.9) Sec. INR 1.03 (0.87-1.13) APTT 27.8 (24.2-36.6) Sec. Thrombin Time 16.0 (15.1-19.6) Sec. Sodium 130 L (137-145) mmol/L Potassium 5.3 H (3.6-5.0) mmol/L Chloride 93.6 L (98-107) mmol/L Carbon Dioxide 22 (22-30) mmol/L Anion Gap 20 mmol/L BUN 14 (9-20) mg/dL Creatinine 0.6 L (0.8-1.5) mg/dL Estimated GFR > 60 ml/min BUN/Creatinine Ratio 23 % Glucose 128 H (75-100) mg/dL POC Glucose (70-105) Calcium 9.5 (8.4-10.2) mg/dL Magnesium 1.70 (1.7-2.3) mg/dL Total Creatine Kinase (55-170) units/L CK-MB (CK-2) (0.0-4.0) ng/mL CK-MB (CK-2) Rel Index (0-4) Troponin T < 0.010 (0.00-0.029) ng/mL 06/15/19 06/15/19 Range/Units 13:11 13:17 WBC (4.5-11.0) K/mm3 RBC (3.65-5.03) M/mm3 Hgb (11.8-15.2) gm/dl Hct (35.5-45.6) % MCV (84-94) fl MCH (28-32) pg MCHC (32-34) % RDW (13.2-15.2) % Plt Count (140-440) K/mm3 Lymph % (Auto) (13.4-35.0) % [place] % (Auto) (0.0-7.3) % Eos % (Auto) (0.0-4.3) % Baso % (Auto) (0.0-1.8) % Lymph # (1.2-5.4) K/mm3 [place] # (0.0-0.8) K/mm3 Eos # (0.0-0.4) K/mm3 Baso # (0.0-0.1) K/mm3 Seg Neutrophils % (40.0-70.0) % Seg Neutrophils # (1.8-7.7) K/mm3 PT (12.2-14.9) Sec. INR (0.87-1.13) APTT (24.2-36.6) Sec. Thrombin Time (15.1-19.6) Sec. Sodium (137-145) mmol/L Potassium (3.6-5.0) mmol/L Chloride (98-107) mmol/L Carbon Dioxide (22-30) mmol/L Anion Gap mmol/L BUN (9-20) mg/dL Creatinine (0.8-1.5) mg/dL Estimated GFR ml/min BUN/Creatinine Ratio % Glucose (75-100) mg/dL POC Glucose 112 H (70-105) Calcium (8.4-10.2) mg/dL Magnesium (1.7-2.3) mg/dL Total Creatine Kinase 51 L (55-170) units/L CK-MB (CK-2) 2.4 (0.0-4.0) ng/mL CK-MB (CK-2) Rel Index 4.7 H (0-4) Troponin T (0.00-0.029) ng/mL - EKG Data -: EKG Interpreted by Me 06/15/19 13:18 The EKG shows an atrial paced rhythm, good capture, left axis deviation, right bundle branch block, appears unchanged from prior EKG from February 2019. This is not consistent with ST elevation myocardial infarction. - Radiology Data Radiology results: report reviewed, image reviewed Print Report Referring Physician: KAYE BAXTER Patient Name: EDDY FIGUEROA Date of : 1930 Sex: Male Report Date: 2019-06-15 Report Status: Finalized Findings [facility] [address] [place] [address] Cat Scan Report Signed Patient: EDDY FIGUEROA MR#: [id number] : 1930 Acct:[id number] Age/Sex: 88 / M ADM Date: 06/15/19 Loc: ED Attending Dr: Ordering Physician: KAYE BAXTER MD Date of Service: 06/15/19 Procedure(s): CT head/brain wo con Accession Number(s): [id number] cc: KAYE BAXTER MD CT head without contrast HISTORY: neuro deficits <6hrs or sx present upon awakening. TECHNIQUE: Axial imaging performed from the skull apex through the skull base without the use of contrast. All CT scans at this location are performed using CT dose reduction for ALARA by means of automated exposure control. COMPARISON: CT head from 03/04/2019 FINDINGS: Parenchyma: No acute intracranial hemorrhage or parenchymal abnormality. 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 Small lacunar infarct near the right thalamus. Ventricles: There is mild diffuse brain atrophy with commensurate ventricular enlargement which is likely age appropriate. Soft tissues: Soft tissues including the orbits appear normal. Bones: No acute osseous abnormality. Sinuses: Sinuses and mastoid air cells are clear. IMPRESSION: No acute abnormality. COMMUNICATION: Time of Communication (DAY GUARD/CDT): 12:24 PM Licensed Practitioner Receiving Report: Dr. Baxter Signer Name: Tay Santiago MD Signed: 06/15/2019 1:24 PM Workstation Name: [id number] Transcribed By: JW Dictated By: Tay Santiago MD Electronically Authenticated By: Tay Santiago MD Signed Date/Time: 06/15/19 1324 Print Report Referring Physician: KAYE BAXTER Patient Name: EDDY FIGUEROA Date of : 1930 Sex: Male Report Date: 2019-06-15 Report Status: Finalized Findings [facility] [address] [place] [address] XRay Report Signed Patient: EDDY FIGUEROA MR#: [id number] : 1930 Acct:[id number] Age/Sex: 88 / M ADM Date: 06/15/19 Loc: ED Attending Dr: Ordering Physician: KAYE BAXTER MD Date of Service: 06/15/19 Procedure(s): XR chest 1V ap Accession Number(s): [id number] cc: KAYE BAXTER MD Fluoro Time In Minutes: CHEST 1 VIEW 06/15/2019 1:22 PM INDICATION / CLINICAL INFORMATION: acute cva. COMPARISON: 03/04/19 FINDINGS: SUPPORT DEVICES: Stable satisfactory device positioning. HEART / MEDIASTINUM: Stable. LUNGS / PLEURA: No significant pulmonary or pleural abnormality. No pneumothorax. ADDITIONAL FINDINGS: No significant additional findings. IMPRESSION: 1. No acute findings. Signer Name: Gacria Estevez MD Signed: 06/15/2019 1:46 PM Workstation Name: [id number] Transcribed By: MISHEL Dictated By: Garcia Estevez MD Electronically A uthenticated By: Garcia Estevez MD Signed Date/Time: 06/15/19 1346 DD/ 1344 - Core Measures Measure Exclusions: not indicated - Thrombolytic Inclusion/Exclusion Thrombolytic Inclusion Criteria: Ischemic Stroke Onset< 3h, NIH Stroke Scale Deficit, Negative CT Scan for ICH, Age 18 or Older, Glucose of 50-400mg/dl Critical Care Time: Yes Critical care time in (mins) excluding proc time.: 60 Critical care attestation.: If time is entered above; I have spent that time in minutes in the direct care of this critically ill patient, excluding procedure time. ED Disposition Clinical Impression: Acute CVA (cerebrovascular accident) Disposition: DC-09 OP ADMIT IP TO THIS HOSP Is pt being admited?: Yes Condition: Critical
[2019-06-15] MEDS ORDERED: ALTEPLASE 100 MG INJ KIT ONE (13:13)
[2019-06-15] MEDS ORDERED: SODIUM CHLORIDE 0.9% 50 ML IVPB IV ONE (13:18)
[2019-06-15] MEDS ORDERED: ALTEPLASE 100 MG INJ KIT IV ONE ×2 (13:18)
[2019-06-15 13:23] LABS: Basophils # (Auto) 0.1 K/mm3 (0.0-0.1); Basophils % (Auto) 0.9 % (0.0-1.8); Eosinophils # (Auto) 0.2 K/mm3 (0.0-0.4); Eosinophils % (Auto) 2.4 % (0.0-4.3); Hematocrit 37.4 % (35.5-45.6); Lymphocytes # (Auto) 1.5 K/mm3 (1.2-5.4); Lymphocytes % (Auto) 23.1 % (13.4-35.0); Mean Corpuscular HGB Conc 35 % (32-34); Mean Corpuscular Volume 99 fl (84-94); Monocytes # (Auto) 0.9 K/mm3 (0.0-0.8); Monocytes % (Auto) 13.6 % (0.0-7.3); Platelet Count 221 K/mm3 (140-440); Red Blood Count 3.79 M/mm3 (3.65-5.03)
--- NOTE | 2019-06-15 13:27 | Emergency Department Report ---
ED Neuro Deficit HPI - General Chief Complaint: Neuro Symptoms/Deficit Stated Complaint: STROKE Time Seen by Provider: 06/15/19 12:58 Source: family, EMS, RN notes reviewed, old records reviewed Mode of arrival: Stretcher Limitations: Altered Mental Status, Physical Limitation - History of Present Illness Initial Comments: [facility] Date of Service: 06/15/2019 12:54:34 Impression: Rule Out Acute Ischemic Stroke Right Hemispheric Infarct MCA Distribution Infarct Anterior Circulation Infarct Comments/Sign-Out: Patient with hx of hypertension, PPM, vascular dementia, CABG, TIA who presents after sudden onset of left sided weakness, aphasia and left facial droop. Patient with no contraindications to tpa, discussed risks and benefits with spouse who agrees to proceed. Will need CTA head and neck givne hemiparesis, VF deficit and aphasia. Mechanism of Stroke: Possible Thromboembolic Possible Cardioembolic Metrics: Last Known Well: 06/15/2019 12:15:00 [employer] Notification Time: 06/15/2019 12:54:10 Arrival Time: 06/15/2019 12:47:00 Stamp Time: 06/15/2019 12:54:34 Time First Login Attempt: 06/15/2019 13:01:30 Video Start Time: 06/15/2019 13:01:30 Symptoms: left facial droop and left sided weakness and aphasia NIHSS Start Assessment Time: 06/15/2019 13:10:28 tPA Verbal Order Time: 06/15/2019 13:12:29 Patient is a candidate for tPA. tPA CPOE Order Time: 06/15/2019 13:12:31 Needle Time: 06/15/2019 13:21:04 Weight Noted by Staff: [address] head showed no acute hemorrhage or acute core infarct. CT head was reviewed and results were: prelim no acute bleed. Clinical Presentation is Suggestive of Large Vessel Occlusive Disease, Recommendations are as Follows CTA Head and Neck. CT Perfusion. Advanced Imaging to be Reviewed by ED Provider and KAY. ED Physician notified of diagnostic impression and management plan on 06/15/2019 13:12:37 Verbal Consent to tPA: I have explained to the Patient and Family the nature of the patients condition, the use of tPA fibrinolytic agent, and the benefits to be reasonably expected compared with alternative approaches. I have discussed the likelihood of major risks or complications of this procedure including (if applicable) but not limited to loss of limb function, brain damage, paralysis, hemorrhage, infection, complications from transfusion of blood components, drug reactions, blood clots and loss of life. I have also indicated that with any procedure there is always the possibility of an unexpected complication. All questions were answered and Patient and Family express understanding of the treatment plan and consent to the treatment. Our recommendations are outlined below. Recommendations: IV tPA recommended. tPA bolus given Without Complication. IV tPA Total Dose 70.2 mg IV tPA Bolus Dose 7.0 mg IV tPA Infusion Dose - 63.2 mg Routine post tPA monitoring including neuro checks and blood pressure control during/after treatment Monitor blood pressure Check blood pressure and NIHSS every 15 min for 2 h, then every 30 min for 6 h, and finally every hour for 16 h. Manage Blood Pressure per post tPA protocol. Admission to ICU CT brain 24 hours post tPA NPO until swallowing screen performed and passed No antiplatelet agents or anticoagulants (including heparin for DVT prophylaxis) in first 24 hours No Gudino catheter, nasogastric tube, arterial catheter or central venous catheter for 24 hr, unless absolutely necessary Telemetry Bedside swallow evaluation HOB less than 30 degrees Euglycemia Avoid hyperthermia, PRN acetaminophen DVT prophylaxis Inpatient Neurology Consultation Stroke evaluation as per inpatient neurology recommendations Additional Recommendations: Start Atorvastatin Lipid Panel Check Hgb A1c Dysphagia Screen DVT Prophylaxis Hyperglycemia Treatment as per Primary Team PT/ OT / Speech Therapy Consultation Neurology to Be Consulted for Inpatient Routine Consultation Echocardiogram, TTE Discussed with ED physician History of Present Illness: Patient is a 88 year old Male. Patient was brought by EMS for symptoms of left facial droop and left sided weakness and aphasia Patient with PMH of CABG, TIA, PPM, on plavix and asa only. per he is on no anticoagulants, no prior ICH, no tumor, liver or kidney disease. no recent surgeries, no GI bleed. no chest pain He was hospitalized in february for symptoms of speech abnormalities, normal CT head. CT head showed no acute hemorrhage or acute core infarct. CT head was reviewed. Last seen normal was within 4.5 hours. There is no history of hemorrhagic complications or intracranial hemorrhage. There is no history of Recent Anticoagulants. There is no history of recent major surgery. There is no history of recent stroke. Examination: BP(148/80), Pulse(78), Blood Glucose(112) 1A: Level of Consciousness - Arouses to minor stimulation + 1 1B: Ask Month and Age - 1 Question Right + 1 1C: Blink Eyes & Squeeze Hands - Performs Both Tasks + 0 2: Test Horizontal Extraocular Movements - Normal + 0 3: Test Visual Navarro - Complete Hemianopia + 2 4: Test Facial Palsy (Use Grimace if Obtunded) - Partial paralysis (lower face) + 2 5A: Test Left Arm Motor Drift - Drift, hits bed + 2 5B: Test Right Arm Motor Drift - No Drift for 10 Seconds + 0 6A: Test Left Leg Motor Drift - No Effort Against Clover + 3 6B: Test Right Leg Motor Drift - No Drift for 5 Seconds + 0 7: Test Limb Ataxia (FNF/Heel-Moon) - No Ataxia + 0 8: Test Sensation - Mild-Moderate Loss: Less Sharp/More Dull + 1 9: Test Language/Aphasia - Mild-Moderate Aphasia: Some Obvious Changes, Without Significant Limitation + 1 10: Test Dysarthria - Severe Dysarthria: Unintelligble Slurring or Out of Proportion to Aphasia + 2 11: Test Extinction/Inattention - No abnormality + 0 NIHSS Score: 15 Patient was informed the Neurology Consult would happen via TeleHealth consult by way of interactive audio and video telecommunications and consented to receiving care in this manner. Due to the immediate potential for life-threatening deterioration due to underlying acute neurologic illness, I spent 35 minutes providing critical care. This time includes time for face to face visit via telemedicine, review of medical records, imaging studies and discussion of findings with providers, the patient and/or family. Dr Elaine Patel [facility] Case [id number] Location: left face, left arm, left leg History of same: Yes Place: other Quality: other Improves With: other Worsens With: other On Anticoagulants: Yes - Related Data Home Medications: Home Medications Medication Instructions Recorded Confirmed Last Taken Acetaminophen [Tylenol] 500 mg PO BID 03/04/19 03/04/19 Unknown B 12 1 tab PO DAILY 03/04/19 03/04/19 Unknown Clopidogrel [Plavix] 75 mg PO QPM 03/04/19 03/04/19 Unknown Isosorbide Dinitrate [Isosorbide 120 mg PO BID 03/04/19 03/04/19 Unknown Dinitrate ER] Metoprolol [Lopressor TAB] 50 mg PO TID 03/04/19 03/04/19 Unknown Pravastatin Sodium [Pravastatin] 10 mg PO QHS 03/04/19 03/04/19 Unknown Ranolazine ER [Ranexa ER] 500 mg PO DAILY 03/04/19 03/04/19 Unknown Ubidecarenone [Co Q10] 100 mg PO DAILY 03/04/19 03/04/19 Unknown Allergies/Adverse Reactions: Allergies Allergy/AdvReac Type Severity Reaction Status Date / Time No Known Allergies Allergy Verified 03/04/19 17:04 ED Review of Systems ROS: Stated complaint: STROKE Other details as noted in HPI Neurological: weakness ED Past Medical Hx - Past Medical History Hx Hypertension: Yes Hx Heart Attack/AMI: Yes Hx Diabetes: Yes Hx GERD: Yes Additional medical history: Dementia - Surgical History Hx Coronary Stent: Yes (over 15 years ago) Hx Open Heart Surgery: Yes (2010) Hx Pacemaker: Yes - Social History Smoking Status: Never Smoker - Medications Home Medications: Home Medications Medication Instructions Recorded Confirmed Last Taken Type Acetaminophen [Tylenol] 500 mg PO BID 03/04/19 03/04/19 Unknown History B 12 1 tab PO DAILY 03/04/19 03/04/19 Unknown History Clopidogrel [Plavix] 75 mg PO QPM 03/04/19 03/04/19 Unknown History Isosorbide Dinitrate [Isosorbide 120 mg PO BID 03/04/19 03/04/19 Unknown History Dinitrate ER] Metoprolol [Lopressor TAB] 50 mg PO TID 03/04/19 03/04/19 Unknown History Pravastatin Sodium [Pravastatin] 10 mg PO QHS 03/04/19 03/04/19 Unknown History Ranolazine ER [Ranexa ER] 500 mg PO DAILY 03/04/19 03/04/19 Unknown History Ubidecarenone [Co Q10] 100 mg PO DAILY 03/04/19 03/04/19 Unknown History ED Neuro Physical Exam - General Limitations: Altered Mental Status, Physical Limitation General appearance: alert, anxious Suspected Stroke: Yes - exam: Present: normal inspection - Extremities Exam Extremities exam: Present: normal inspection - Back Exam Back exam: Present: normal inspection - Neurological Exam Neurological exam: Present: motor sensory deficit - NIHSS Assessment Interval: Baseline 1a. Level of Consciousness: arousable/minor stimuli ED Course Vital Signs 06/15/19 13:21 Pulse Rate 61 Blood Pressure 123/86 - Lab Data Lab Results 06/15/19 Range/Units 13:17 POC Glucose 112 H (70-105) Critical care attestation.: If time is entered above; I have spent that time in minutes in the direct care of this critically ill patient, excluding procedure time. ED Disposition Is pt being admited?: Yes Does the pt Need Aspirin: No Condition: Stable
--- NOTE | 2019-06-15 13:29 | Cat Scan Report ---
CT head without contrast HISTORY: neuro deficits <6hrs or sx present upon awakening. TECHNIQUE: Axial imaging performed from the skull apex through the skull base without the use of con trast. All CT scans at this location are performed using CT dose reduction for ALARA by means of aut omated exposure control. COMPARISON: CT head from 03/04/2019 FINDINGS: Parenchyma: No acute intracranial hemorrhage or parenchymal abnormality. Symmetric periventricular h ypodensities are likely in keeping with microangiopathy. Small lacunar infarct near the right thalamu s. Ventricles: There is mild diffuse brain atrophy with commensurate ventricular enlargement which is l ikely age appropriate. Soft tissues: Soft tissues including the orbits appear normal. Bones: No acute osseous abnormality. Sinuses: Sinuses and mastoid air cells are clear. IMPRESSION: No acute abnormality. COMMUNICATION: Time of Communication (USED CAR LOT ATTENDANT/CDT): 12:24 PM Licensed Practitioner Receiving Report: Dr. Baxter Signer Name: Tay Santiago MD Signed: 06/15/2019 1:24 PM Workstation Name: [id number]
[2019-06-15 13:41] LABS: BUN/Creatinine Ratio 23; Blood Urea Nitrogen 14 mg/dL (9-20); Calcium 9.5 mg/dL (8.4-10.2); Hemolysis Index 105
--- NOTE | 2019-06-15 13:50 | XRay Report ---
CHEST 1 VIEW 06/15/2019 1:22 PM INDICATION / CLINICAL INFORMATION: acute cva. COMPARISON: 03/04/19 FINDINGS: SUPPORT DEVICES: Stable satisfactory device positioning. HEART / MEDIASTINUM: Stable. LUNGS / PLEURA: No significant pulmonary or pleural abnormality. No pneumothorax. ADDITIONAL FINDINGS: No significant additional findings. IMPRESSION: 1. No acute findings. Signer Name: Garcia Estevez MD Signed: 06/15/2019 1:46 PM Workstation Name: [id number]
[2019-06-15 13:55] LABS: INR 1.03 (0.87-1.13)
[2019-06-15 13:56] LABS: Partial Thromboplastin Time 27.8 Sec. (24.2-36.6)
[2019-06-15 14:00] LABS: Creatine Kinase MB 2.4 ng/mL (0.0-4.0)
--- NOTE | 2019-06-15 14:56 | Cat Scan Report ---
HEAD CT ANGIOGRAM 06/15/2019 HISTORY: 88-year-old female with "neuro deficits" FINDINGS: Contrast-enhanced CT angiographic images of the intracranial circulation were obtained. In addition to the axial images, sagittal and coronal reformatted images were obtained. In addition, 3 p juliette MIP reconstructions were produced. There is no evidence of acute abnormality. Atherosclerotic vascular calcifications are associated with the carotid arteries bilaterally at the l evel of the cavernous sinuses. There is no evidence of significant stenosis here. Vascular contours at the level of the skull base and rosebud of Leary are otherwise unremarkable. IMPRESSION: No significant abnormality. All CT scans at this location are performed using dose reduction to ALARA by means of automated expos ure control. Signer Name: Peña He MD Signed: 06/15/2019 2:52 PM Workstation Name: [id number]
--- NOTE | 2019-06-15 15:13 | Cat Scan Report ---
NECK CT ANGIOGRAM 06/15/2019 HISTORY: 88-year-old female with neuro deficits FINDINGS: Contrast-enhanced CT angiographic images of the neck were obtained. In addition to the axia l images, sagittal and coronal reformatted images were obtained. In addition, 3 plane MIP reconstruct ions were produced. NASCET like criteria were used in this evaluation. The left bifurcation, prominent calcified atherosclerotic plaque is present, associated with high-gra de stenosis at the origin of the internal carotid artery. This stenosis would be in the range of 90%. At the right bifurcation, some mild atherosclerotic irregularity is present, with no evidence of sign ificant or measurable stenosis. Vertebral artery contours are unremarkable. Atherosclerotic vascular calcifications are present at the level of the aortic arch,, with possible m oderate stenosis at the origin of the left common carotid artery. There is significant reflux of injected contrast material into the venous structures in the neck. The re appears to be stenosis along the course of the left brachycephalic vein, which also contains pacem yusuf leads. 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 All CT scans at this location are performed using dose reduction to ALARA by means of automated expos ure control. Signer Name: Peña He MD Signed: 06/15/2019 3:09 PM Workstation Name: [id number]
[2019-06-15 17:13] LABS: Bilirubin,Urine NEG (Negative); Blood,Urine NEG (Negative); Color,Urine Yellow (Yellow); Protein,Urine <15 mg/dL mg/dL (Negative); Urobilinogen,Urine < 2.0 mg/dL (<2.0)
--- NOTE | 2019-06-15 19:22 | History and Physical Report ---
History of Present Illness Date of examination: 06/15/19 Date of admission: 06/15/19 14:35 Chief complaint: L side weakness- acute onset History of present illness: 88-year-old gentleman with history of vascular dementia, stroke versus TIA, high cholesterol, and diabetes brought to the hospital with his and EMS with a concern of having a stroke. The patient is demented and a poor historian, and cannot describe exacerbating or relieving factors. As per his , his last known well time is 12:15 PM. Stroke deficits include left-sided weakness in the arm and leg, facial droop. His symptoms have apparently been constant for the past hour. As per the , there were no exacerbating or relieving factors. No recent trauma, surgeries, strokes, and the patient takes aspirin and Plavix, but otherwise, does not take systemic anticoagulation. Patient not able to describe qualitative nature of his symptoms, exacerbating or relieving factors.COde stroke was called and TPA given as he was in the windowperiod.Some improvement in L side weakness after TP A. Past Medical History Hypertension: Yes Heart Attack/AMI: Yes Diabetes: Yes GERD: Yes Additional medical history: Dementia Surgical History Coronary Stent: Yes (over 15 years ago) Open Heart Surgery: Yes (2010) Pacemaker: Yes Social History Smoking Status: Never Smoker Medications Home Medications: Home Medications Medication Instructions Recorded Confirmed Last Taken Type Clopidogrel [Plavix] 75 mg PO QPM 03/04/19 06/15/19 Unknown History Isosorbide Dinitrate [Isosorbide 120 mg PO BID 03/04/19 06/15/19 Unknown History Dinitrate ER] Metoprolol [Lopressor TAB] 50 mg PO TID 03/04/19 06/15/19 Unknown History Pravastatin Sodium [Pravastatin] 10 mg PO QHS 03/04/19 06/15/19 Unknown History Ranolazine ER [Ranexa ER] 500 mg PO DAILY 03/04/19 06/15/19 Unknown History Ubidecarenone [Co Q10] 100 mg PO DAILY 03/04/19 06/15/19 Unknown History Ranitidine HCl 300 mg PO DAILY 06/15/19 06/15/19 Unknown History metFORMIN 500 mg PO BID 06/15/19 06/15/19 Unknown History Review of Systems ROS: Stated complaint: STROKE Other details as noted in HPI Comment: Unobtainable due to pts medical conditions Neurological: weakness Medications and Allergies Allergies Allergy/AdvReac Type Severity Reaction Status Date / Time No Known Allergies Allergy Verified 03/04/19 17:04 Home Medications Medication Instructions Recorded Confirmed Last Taken Type Clopidogrel [Plavix] 75 mg PO QPM 03/04/19 06/15/19 06/14/19 18:00 History Isosorbide Dinitrate [Isosorbide 120 mg PO BID 03/04/19 06/15/19 06/15/19 09:00 History Dinitrate ER] Metoprolol [Lopressor TAB] 50 mg PO TID 03/04/19 06/15/19 06/15/19 09:00 History Pravastatin Sodium [Pravastatin] 10 mg PO QHS 03/04/19 06/15/19 06/14/19 18:00 History Ranolazine ER [Ranexa ER] 500 mg PO DAILY 03/04/19 06/15/19 06/14/19 18:00 History Ubidecarenone [Co Q10] 100 mg PO DAILY 03/04/19 06/15/19 06/15/19 09:00 History Aspirin [Aspirin BABY CHEW TAB] 81 mg PO DAILY 06/15/19 06/15/19 06/14/19 18:00 History Cyanocobalamin (Vitamin B-12) 1,000 mcg PO DAILY 06/15/19 06/15/19 06/15/19 09:00 History [Vitamin B-12] Nitroglycerin [Nitrostat] 0.4 mg SL Q5M PRN 06/15/19 06/15/19 06/09/19 19:12 History Ranitidine HCl 300 mg PO DAILY 06/15/19 06/15/19 06/15/19 09:00 History metFORMIN 500 mg PO BID 06/15/19 06/15/19 06/15/19 09:00 History Exam - Constitutional Vitals: Temp Pulse Resp BP Pulse Ox 97.5 F L 67 20 154/86 96 06/15/19 14:22 06/15/19 18:30 06/15/19 18:30 06/15/19 18:30 06/15/19 18:30 General appearance: Present: no acute distress, well-nourished - EENT Eyes: Present: PERRL ENT: hearing intact, clear oral mucosa - Neck Neck: Present: supple, normal ROM - Respiratory Respiratory effort: normal Respiratory: bilateral: CTA - Cardiovascular Heart rate: 78 Rhythm: regular Heart Sounds: Present: S1 & S2. Absent: rub, click - Extremities Extremities: no ischemia, pulses intact, pulses symmetrical, No edema Peripheral Pulses: within normal limits - Abdominal General gastrointestinal: Present: soft, non-tender, non-distended, normal bowel sounds Male genitourinary: Present: normal - Integumentary Integumentary: Present: clear, warm, dry - Musculoskeletal Musculoskeletal: left sided weakness (3/5 power LUE and LLE) - Psychiatric Psychiatric: appropriate mood/affect, intact judgment & insight - Neurologic Neurologic: CNII-XII intact, moves all extremities MCKENZIE score - Mckenzie Score Aspirin use within the Past 7 Days: (1) Yes Results - Labs CBC & Chem 7: 06/16/19 03:57 06/16/19 03:57 Labs: Laboratory Last Values WBC 6.7 K/mm3 (4.5-11.0) 06/15/19 13:11 RBC 3.79 M/mm3 (3.65-5.03) 06/15/19 13:11 Hgb 13.0 gm/dl (11.8-15.2) 06/15/19 13:11 Hct 37.4 % (35.5-45.6) 06/15/19 13:11 MCV 99 fl (84-94) H 06/15/19 13:11 MCH 34 pg (28-32) H 06/15/19 13:11 MCHC 35 % (32-34) H 06/15/19 13:11 RDW 14.0 % (13.2-15.2) 06/15/19 13:11 Plt Count 221 K/mm3 (140-440) 06/15/19 13:11 Lymph % (Auto) 23.1 % (13.4-35.0) 06/15/19 13:11 Mckean % (Auto) 13.6 % (0.0-7.3) H 06/15/19 13:11 Eos % (Auto) 2.4 % (0.0-4.3) 06/15/19 13:11 Baso % (Auto) 0.9 % (0.0-1.8) 06/15/19 13:11 Lymph # 1.5 K/mm3 (1.2-5.4) 06/15/19 13:11 Mckean # 0.9 K/mm3 (0.0-0.8) H 06/15/19 13:11 Eos # 0.2 K/mm3 (0.0-0.4) 06/15/19 13:11 Baso # 0.1 K/mm3 (0.0-0.1) 06/15/19 13:11 Seg Neutrophils % 60.0 % (40.0-70.0) 06/15/19 13:11 Seg Neutrophils # 4.0 K/mm3 (1.8-7.7) 06/15/19 13:11 PT 13.6 Sec. (12.2-14.9) 06/15/19 13:11 INR 1.03 (0.87-1.13) 06/15/19 13:11 APTT 27.8 Sec. (24.2-36.6) 06/15/19 13:11 Thrombin Time 16.0 Sec. (15.1-19.6) 06/15/19 13:11 Sodium 130 mmol/L (137-145) L 06/15/19 13:11 Potassium 5.3 mmol/L (3.6-5.0) H 06/15/19 13:11 Chloride 93.6 mmol/L (98-107) L 06/15/19 13:11 Carbon Dioxide 22 mmol/L (22-30) 06/15/19 13:11 Anion Gap 20 mmol/L 06/15/19 13:11 BUN 14 mg/dL (9-20) 06/15/19 13:11 Creatinine 0.6 mg/dL (0.8-1.5) L 06/15/19 13:11 Estimated GFR > 60 ml/min 06/15/19 13:11 BUN/Creatinine Ratio 23 % 06/15/19 13:11 Glucose 128 mg/dL (75-100) H 06/15/19 13:11 POC Glucose 112 (70-105) H 06/15/19 13:17 Calcium 9.5 mg/dL (8.4-10.2) 06/15/19 13:11 Magnesium 1.70 mg/dL (1.7-2.3) 06/15/19 13:11 Total Creatine Kinase 51 units/L (55-170) L 06/15/19 13:11 CK-MB (CK-2) 2.4 ng/mL (0.0-4.0) 06/15/19 13:11 CK-MB (CK-2) Rel Index 4.7 (0-4) H 06/15/19 13:11 Troponin T < 0.010 ng/mL (0.00-0.029) 06/15/19 13:11 Urine Color Yellow (Yellow) 06/15/19 17:00 Urine Turbidity Clear (Clear) 06/15/19 17:00 Urine pH 6.0 (5.0-7.0) 06/15/19 17:00 Ur Specific [place] 1.036 (1.003-1.030) H 06/15/19 17:00 Urine Protein <15 mg/dl mg/dL (Negative) 06/15/19 17:00 Urine Glucose (UA) Neg mg/dL (Negative) 06/15/19 17:00 Urine Ketones Neg mg/dL (Negative) 06/15/19 17:00 Urine Blood Neg (Negative) 06/15/19 17:00 Urine Nitrite Neg (Negative) 06/15/19 17:00 Urine Bilirubin Neg (Negative) 06/15/19 17:00 Urine Urobilinogen < 2.0 mg/dL (<2.0) 06/15/19 17:00 Ur Leukocyte Esterase Neg (Negative) 06/15/19 17:00 Urine WBC (Auto) 1.0 /HPF (0.0-6.0) 06/15/19 17:00 Urine RBC (Auto) 1.0 /HPF (0.0-6.0) 06/15/19 17:00 Short CBC 06/15/19 06/16/19 Range/Units 13:11 03:57 WBC 6.7 7.7 (4.5-11.0) K/mm3 Hgb 13.0 13.5 (11.8-15.2) gm/dl Hct 37.4 38.4 (35.5-45.6) % Plt Count 221 217 (140-440) K/mm3 BMP 06/15/19 06/16/19 13:11 03:57 Sodium 130 L 134 L Potassium 5.3 H 4.8 Chloride 93.6 L 94.9 L Carbon Dioxide 22 25 BUN 14 11 Creatinine 0.6 L 0.6 L Glucose 128 H 105 H Calcium 9.5 9.7 Cardiac Enzymes 06/15/19 06/15/19 Range/Units 13:11 13:11 Total Creatine Kinase 51 L (55-170) units/L CK-MB (CK-2) 2.4 (0.0-4.0) ng/mL Troponin T < 0.010 (0.00-0.029) ng/mL Liver Function 06/16/19 Range/Units 03:57 Total Bilirubin 0.70 (0.1-1.2) mg/dL AST 15 (5-40) units/L ALT 12 (7-56) units/L Alkaline Phosphatase 41 (35-129) units/L Albumin 4.3 (3.9-5) g/dL Urine 06/15/19 Range/Units 17:00 Urine Color Yellow (Yellow) Urine pH 6.0 (5.0-7.0) Ur Specific [place] 1.036 H (1.003-1.030) Urine Protein <15 mg/dl (Negative) mg/dL Urine Glucose (UA) Neg (Negative) mg/dL - Imaging and Cardiology EKG: report reviewed (Atrial paced rhythm 68min RBBB LAFB) CT Scan - head: report reviewed Imaging and Cardiology: CTA Head/neck High grade stenosis L ICA Assessment and Plan Advance Directives: Yes (Full code) VTE prophylaxis?: Chemical Plan of care discussed with patient/family: Yes - Patient Problems (1) Acute CVA (cerebrovascular accident) Current Visit: Yes Status: Acute Plan to address problem: S/p TPA Improving DAPT from tuesday CVA protocol PT/OT requested Statins (2) HTN (hypertension) Current Visit: Yes Status: Chronic Qualifiers: Hypertension type: essential hypertension Qualified Code(s): I10 - Essential (primary) hypertension Plan to address problem: Cont Antihyertensives (3) CAD (coronary artery disease) Current Visit: Yes Status: Chronic Qualifiers: Coronary Disease-Associated Artery/Lesion type: [place] artery [place] vs. transplanted heart: [place] heart Plan to address problem: On DAPT (4) HLD (hyperlipidemia) Current Visit: Yes Status: Chronic Qualifiers: Hyperlipidemia type: mixed hyperlipidemia Qualified Code(s): E78.2 - Mixed hyperlipidemia Plan to address problem: Cont statins (5) T2DM (type 2 diabetes mellitus) Current Visit: Yes Status: Chronic Qualifiers: Diabetes mellitus manager intermediate insulin use: unspecified residential insulin use status Plan to address problem: Coverage for now Check A1c (6) DVT prophylaxis Current Visit: Yes Status: Acute Plan to address problem: On Scd's
[2019-06-15] MEDS ORDERED: UBIDECARENONE 100 MG PO SCH (20:15)
[2019-06-15] MEDS ORDERED: RANITIDINE HCL 300 MG PO SCH (20:15)
[2019-06-15] MEDS ORDERED: ACETAMINOPHEN 325 MG TAB PO PRN (20:26)
[2019-06-15] MEDS ORDERED: ONDANSETRON 4 MG/2 ML INJ IV PRN (20:26)
[2019-06-15] MEDS ORDERED: MORPHINE 2 MG/1 ML INJ IV PRN (20:27)
[2019-06-15] MEDS ORDERED: SODIUM CHLORIDE 0.9% 1000 ML 1,000 ML IV SCH (20:30)
[2019-06-15 21:25] LABS: Chol/HDL Ratio 2.95 %
[2019-06-15] MEDS: metFORMIN 500 MG TAB PO SCH (21:36)
[2019-06-15] MEDS: RANOLAZINE ER 500 MG TAB 12HR PO SCH (21:36)
[2019-06-15] MEDS: CYANOCOBALAMIN (VIT B-12) 1000 MCG TAB PO SCH (21:36)
[2019-06-15] MEDS: ISOSORBIDE DINITRATE 20 MG TAB PO SCH (21:37)
[2019-06-15] MEDS ORDERED: FAMOTIDINE 20 MG TAB PO SCH (22:00)
[2019-06-15] MEDS ORDERED: NON-FORMULARY EACH (Pravastatin Sodium [Pravastatin] 10 MG) PO SCH (22:00)
[2019-06-15] MEDS ORDERED: ISOSORBIDE DINITRATE 120 MG PO SCH (22:00)
[2019-06-15] MEDS ORDERED: NON-FORMULARY EACH (Metformin 500 MG) PO SCH (22:00)
[2019-06-15] MEDS ORDERED: PRAVASTATIN 20 MG TAB PO SCH (22:00)
[2019-06-15] MEDS: FAMOTIDINE 20 MG/2 ML INJ IV SCH (22:34)
[2019-06-16 04:46] LABS: Basophils # (Auto) 0.1 K/mm3 (0.0-0.1); Basophils % (Auto) 0.9 % (0.0-1.8); Eosinophils # (Auto) 0.2 K/mm3 (0.0-0.4); Eosinophils % (Auto) 2.9 % (0.0-4.3); Hematocrit 38.4 % (35.5-45.6); Hemoglobin 13.5 gm/dl (11.8-15.2); Lymphocytes # (Auto) 1.1 K/mm3 (1.2-5.4); Lymphocytes % (Auto) 14.5 % (13.4-35.0); Mean Corpuscular HGB Conc 35 % (32-34); Mean Corpuscular Volume 98 fl (84-94); Monocytes # (Auto) 0.9 K/mm3 (0.0-0.8); Monocytes % (Auto) 11.2 % (0.0-7.3); Platelet Count 217 K/mm3 (140-440); Red Cell Distribution Width 13.9 % (13.2-15.2)
[2019-06-16 05:15] LABS: Alanine Aminotransferase 12 units/L (7-56); Albumin 4.3 g/dL (3.9-5); BUN/Creatinine Ratio 18; Blood Urea Nitrogen 11 mg/dL (9-20); Calcium 9.7 mg/dL (8.4-10.2); Hemolysis Index 7
[2019-06-16] MEDS: METOPROLOL TARTRATE 50 MG TAB PO SCH ×3 (08:00→21:55)
[2019-06-16] MEDS: INSULIN LISPRO 100 UNIT/ML SUB-Q SCH ×4 (08:15→21:55)
[2019-06-16] MEDS: FAMOTIDINE 20 MG/2 ML INJ IV SCH ×2 (10:20→21:55)
[2019-06-16] MEDS: RANOLAZINE ER 500 MG TAB 12HR PO SCH (10:21)
[2019-06-16] MEDS: ISOSORBIDE DINITRATE 20 MG TAB PO SCH ×2 (10:21→21:54)
[2019-06-16] MEDS: metFORMIN 500 MG TAB PO SCH (10:21)
[2019-06-16] MEDS: CYANOCOBALAMIN (VIT B-12) 1000 MCG TAB PO SCH (10:21)
[2019-06-16] MEDS ORDERED: PNEUMOCOCCAL 23 Valent 0.5 ML VIAL IM ONE (12:00)
--- NOTE | 2019-06-16 13:11 | Progress Note ---
Subjective Date of service: 06/16/19 Interval history: PATIENT SEEN ON FOLLOW UP FROM ed FROM 'S DESCRIPTION SOUNDS LIKE THERE WAS STROKE NOW THE STROKE SCALE IS ZERO, NO FOCAL FINDINGS AND FULL RECOVERY IS NOTED FROM NEURO EPISODE vs STABLE SHOULD BE ABLE TO EAT WILL FOLLOW Objective - Vital Sign Vital Signs - 12hr 06/16/19 06/16/19 06/16/19 01:31 02:00 02:31 Temperature Pulse Rate 65 61 61 Pulse Rate [ From Monitor] Pulse Rate [ 60 Left Arm] Respiratory 17 14 13 Rate Respiratory 13 Rate [Left Arm] Blood Pressure 158/62 149/63 155/67 Blood Pressure 149/63 [Left Arm] O2 Sat by Pulse Oximetry O2 Sat by Pulse 96 Oximetry [Left Arm] 06/16/19 06/16/19 06/16/19 03:00 03:01 03:16 Temperature 98.4 F Pulse Rate 62 Pulse Rate [ From Monitor] Pulse Rate [ 60 Left Arm] Respiratory 13 Rate Respiratory 13 Rate [Left Arm] Blood Pressure 169/69 Blood Pressure 169/69 [Left Arm] O2 Sat by Pulse Oximetry O2 Sat by Pulse 96 Oximetry [Left Arm] 06/16/19 06/16/19 06/16/19 03:31 04:00 04:01 Temperature Pulse Rate 65 66 66 Pulse Rate [ From Monitor] Pulse Rate [ 60 Left Arm] Respiratory 15 13 Rate Respiratory 13 Rate [Left Arm] Blood Pressure 180/81 204/88 Blood Pressure 204/88 [Left Arm] O2 Sat by Pulse Oximetry O2 Sat by Pulse 96 Oximetry [Left Arm] 06/16/19 06/16/19 06/16/19 04:29 04:31 05:00 Temperature Pulse Rate 61 76 Pulse Rate [ From Monitor] Pulse Rate [ 60 Left Arm] Respiratory 14 10 L 28 H Rate Respiratory 13 Rate [Left Arm] Blood Pressure 176/68 190/84 Blood Pressure 190/84 [Left Arm] O2 Sat by Pulse 95 Oximetry O2 Sat by Pulse 96 Oximetry [Left Arm] 06/16/19 06/16/19 06/16/19 05:30 06:00 06:01 Temperature Pulse Rate 64 60 Pulse Rate [ From Monitor] Pulse Rate [ 60 Left Arm] Respiratory 11 L 23 Rate Respiratory 13 Rate [Left Arm] Blood Pressure 195/88 191/90 Blood Pressure 191/90 [Left Arm] O2 Sat by Pulse Oximetry O2 Sat by Pulse 96 Oximetry [Left Arm] 06/16/19 06/16/19 06/16/19 06:31 06:45 07:00 Temperature Pulse Rate 64 59 L 61 Pulse Rate [ From Monitor] Pulse Rate [ 61 Left Arm] Respiratory 10 L 12 12 Rate Respiratory 12 Rate [Left Arm] Blood Pressure 164/65 164/65 150/59 Blood Pressure 150/59 [Left Arm] O2 Sat by Pulse Oximetry O2 Sat by Pulse 96 Oximetry [Left Arm] 06/16/19 06/16/19 06/16/19 07:15 07:31 07:45 Temperature Pulse Rate 60 65 63 Pulse Rate [ From Monitor] Pulse Rate [ Left Arm] Respiratory 14 12 14 Rate Respiratory Rate [Left Arm] Blood Pressure 150/59 140/65 140/65 Blood Pressure [Left Arm] O2 Sat by Pulse 94 Oximetry O2 Sat by Pulse Oximetry [Left Arm] 06/16/19 06/16/19 06/16/19 08:00 08:01 08:15 Temperature 97.9 F Pulse Rate 99 H 61 64 Pulse Rate [ 61 From Monitor] Pulse Rate [ 61 Left Arm] Respiratory 14 13 14 Rate Respiratory 13 Rate [Left Arm] Blood Pressure 167/65 167/65 167/65 Blood Pressure 167/65 [Left Arm] O2 Sat by Pulse 95 92 95 Oximetry O2 Sat by Pulse 96 Oximetry [Left Arm] 06/16/19 06/16/19 06/16/19 08:30 08:45 09:00 Temperature Pulse Rate 62 65 65 Pulse Rate [ From Monitor] Pulse Rate [ 65 Left Arm] Respiratory 14 14 14 Rate Respiratory 14 Rate [Left Arm] Blood Pressure 165/69 153/71 153/62 Blood Pressure 153/62 [Left Arm] O2 Sat by Pulse 94 94 96 Oximetry O2 Sat by Pulse 96 Oximetry [Left Arm] 06/16/19 06/16/19 06/16/19 09:15 09:30 09:45 Temperature Pulse Rate 64 68 61 Pulse Rate [ From Monitor] Pulse Rate [ Left Arm] Respiratory 14 13 15 Rate Respiratory Rate [Left Arm] Blood Pressure 153/71 145/63 145/63 Blood Pressure [Left Arm] O2 Sat by Pulse 96 95 94 Oximetry O2 Sat by Pulse Oximetry [Left Arm] 06/16/19 06/16/19 06/16/19 10:00 10:11 10:21 Temperature Pulse Rate 61 61 61 Pulse Rate [ From Monitor] Pulse Rate [ 61 Left Arm] Respiratory 9 L 14 14 Rate Respiratory 12 Rate [Left Arm] Blood Pressure 152/62 152/62 152/62 Blood Pressure 152/62 [Left Arm] O2 Sat by Pulse 94 95 94 Oximetry O2 Sat by Pulse 97 Oximetry [Left Arm] 06/16/19 06/16/19 06/16/19 10:30 10:41 11:00 Temperature Pulse Rate 62 61 60 Pulse Rate [ From Monitor] Pulse Rate [ 60 Left Arm] Respiratory 14 14 14 Rate Respiratory 14 Rate [Left Arm] Blood Pressure 144/54 144/54 152/52 Blood Pressure 152/52 [Left Arm] O2 Sat by Pulse 93 94 96 Oximetry O2 Sat by Pulse 96 Oximetry [Left Arm] 06/16/19 06/16/19 06/16/19 11:30 12:00 12:30 Temperature Pulse Rate 59 L 60 61 Pulse Rate [ 60 From Monitor] Pulse Rate [ 60 Left Arm] Respiratory 11 L 12 14 Rate Respiratory 12 Rate [Left Arm] Blood Pressure 145/53 150/55 148/56 Blood Pressure 150/55 [Left Arm] O2 Sat by Pulse 94 95 94 Oximetry O2 Sat by Pulse 95 Oximetry [Left Arm] 06/16/19 13:00 Temperature Pulse Rate 61 Pulse Rate [ From Monitor] Pulse Rate [ Left Arm] Respiratory 13 Rate Respiratory Rate [Left Arm] Blood Pressure 146/55 Blood Pressure [Left Arm] O2 Sat by Pulse 95 Oximetry O2 Sat by Pulse Oximetry [Left Arm] - Laboratory Findings CBC and BMP: 06/16/19 03:57 06/16/19 03:57 Abnormal Lab Findings: Abnormal Labs 06/15/19 06/15/19 06/15/19 13:11 13:11 13:11 MCV 99 H MCH 34 H MCHC 35 H [place] % (Auto) 13.6 H Lymph # [place] # 0.9 H Seg Neutrophils % Sodium 130 L Potassium 5.3 H Chloride 93.6 L Creatinine 0.6 L Glucose 128 H POC Glucose Hemoglobin A1c Total Creatine Kinase 51 L CK-MB (CK-2) Rel Index 4.7 H Ur Specific [place] 06/15/19 06/15/19 06/16/19 13:17 17:00 03:57 MCV 98 H MCH 35 H MCHC 35 H [place] % (Auto) 11.2 H Lymph # 1.1 L [place] # 0.9 H Seg Neutrophils % 70.5 H Sodium Potassium Chloride Creatinine Glucose POC Glucose 112 H Hemoglobin A1c Total Creatine Kinase CK-MB (CK-2) Rel Index Ur Specific [place] 1.036 H 06/16/19 06/16/19 06/16/19 03:57 03:57 08:43 MCV MCH MCHC [place] % (Auto) Lymph # [place] # Seg Neutrophils % Sodium 134 L Potassium Chloride 94.9 L Creatinine 0.6 L Glucose 105 H POC Glucose 116 H Hemoglobin A1c 6.7 H Total Creatine Kinase CK-MB (CK-2) Rel Index Ur Specific [place]
--- NOTE | 2019-06-16 14:43 | Progress Note ---
Assessment and Plan Assessment and plan: Patient is a 88-year-old man with a history of vascular dementia, TIA, dyslipidemia, PPM and type 2 DM who presented to [facility] with stroke like symptoms. As per his , his last known well time is 12:15 PM. Stroke deficits include left-sided weakness in the arm and leg, facial droop. He rec eived tPA on 06/15/2019 around 1321. Symptoms resolved, doing well. 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 History Interval history: Patient was seen and examined. Follow-up on current diagnosis CVA. Overnight uneventful as no events directly reported to me. Patient denies any chest pain, shortness breath, nausea/vomiting or severe headaches. Imaging, nursing note, chart, labs and old chart reviewed. Discussed with patient with at bedside. Hospitalist Physical - Physical exam Narrative exam: Gen: thin frail, NAD, Awake, Alert, Orientated x 1 HEENT: NCAT, EOMI, PERRL, OP Clear Neck: supple, no adenopathy, no thyromegaly, no JVD CVS/Heart: RRR, normal S1S2, pulses present bilaterally Chest/Lungs: CTA B, Symmetrical chest expansion, good air entry bilaterally GI/Abdomen: soft, NTND, good bowel sounds, no guarding or rebound /Bladder: no suprapubic tenderness, no CVA or paraspinal tenderness Extermity/Skin: no c/c/e, no obvious rash MSK: FROM x 4 Neuro: CN 2-12 grossly intact, no new focal deficits Psych: calm - Constitutional Vitals: Temp Pulse Resp BP Pulse Ox 97.8 F 62 13 130/48 95 06/16/19 13:39 06/16/19 14:30 06/16/19 14:30 06/16/19 14:30 06/16/19 14:30 General appearance: Present: no acute distress. Absent: well-nourished MCKENZIE score - Mckenzie Score Aspirin use within the Past 7 Days: (1) Yes Results - Labs CBC & Chem 7: 06/16/19 03:57 06/16/19 03:57 Labs: Laboratory Last Values WBC 7.7 K/mm3 (4.5-11.0) 06/16/19 03:57 RBC 3.90 M/mm3 (3.65-5.03) 06/16/19 03:57 Hgb 13.5 gm/dl (11.8-15.2) 06/16/19 03:57 Hct 38.4 % (35.5-45.6) 06/16/19 03:57 MCV 98 fl (84-94) H 06/16/19 03:57 MCH 35 pg (28-32) H 06/16/19 03:57 MCHC 35 % (32-34) H 06/16/19 03:57 RDW 13.9 % (13.2-15.2) 06/16/19 03:57 Plt Count 217 K/mm3 (140-440) 06/16/19 03:57 Lymph % (Auto) 14.5 % (13.4-35.0) 06/16/19 03:57 [place] % (Auto) 11.2 % (0.0-7.3) H 06/16/19 03:57 Eos % (Auto) 2.9 % (0.0-4.3) 06/16/19 03:57 Baso % (Auto) 0.9 % (0.0-1.8) 06/16/19 03:57 Lymph # 1.1 K/mm3 (1.2-5.4) L 06/16/19 03:57 [place] # 0.9 K/mm3 (0.0-0.8) H 06/16/19 03:57 Eos # 0.2 K/mm3 (0.0-0.4) 06/16/19 03:57 Baso # 0.1 K/mm3 (0.0-0.1) 06/16/19 03:57 Seg Neutrophils % 70.5 % (40.0-70.0) H 06/16/19 03:57 Seg Neutrophils # 5.5 K/mm3 (1.8-7.7) 06/16/19 03:57 PT 13.6 Sec. (12.2-14.9) 06/15/19 13:11 INR 1.03 (0.87-1.13) 06/15/19 13:11 APTT 27.8 Sec. (24.2-36.6) 06/15/19 13:11 Thrombin Time 16.0 Sec. (15.1-19.6) 06/15/19 13:11 Sodium 134 mmol/L (137-145) L 06/16/19 03:57 Potassium 4.8 mmol/L (3.6-5.0) 06/16/19 03:57 Chloride 94.9 mmol/L (98-107) L 06/16/19 03:57 Carbon Dioxide 25 mmol/L (22-30) 06/16/19 03:57 Anion Gap 19 mmol/L 06/16/19 03:57 BUN 11 mg/dL (9-20) 06/16/19 03:57 Creatinine 0.6 mg/dL (0.8-1.5) L 06/16/19 03:57 Estimated GFR > 60 ml/min 06/16/19 03:57 BUN/Creatinine Ratio 18 % 06/16/19 03:57 Glucose 105 mg/dL (75-100) H 06/16/19 03:57 POC Glucose 126 (70-105) H 06/16/19 11:40 Hemoglobin A1c 6.7 % (4-6) H 06/16/19 03:57 Calcium 9.7 mg/dL (8.4-10.2) 06/16/19 03:57 Magnesium 1.70 mg/dL (1.7-2.3) 06/15/19 13:11 Total Bilirubin 0.70 mg/dL (0.1-1.2) 06/16/19 03:57 AST 15 units/L (5-40) 06/16/19 03:57 ALT 12 units/L (7-56) 06/16/19 03:57 Alkaline Phosphatase 41 units/L (35-129) 06/16/19 03:57 Total Creatine Kinase 51 units/L (55-170) L 06/15/19 13:11 CK-MB (CK-2) 2.4 ng/mL (0.0-4.0) 06/15/19 13:11 CK-MB (CK-2) Rel Index 4.7 (0-4) H 06/15/19 13:11 Troponin T < 0.010 ng/mL (0.00-0.029) 06/15/19 13:11 Total Protein 7.2 g/dL (6.3-8.2) 06/16/19 03:57 Albumin 4.3 g/dL (3.9-5) 06/16/19 03:57 Albumin/Globulin Ratio 1.5 % 06/16/19 03:57 Triglycerides 118 mg/dL (2-149) 06/15/19 20:27 Cholesterol 142 mg/dL (50-199) 06/15/19 20:27 LDL Cholesterol Direct 73 mg/dL (50-130) 06/15/19 20:27 HDL Cholesterol 48 mg/dL (40-59) 06/15/19 20:27 Cholesterol/HDL Ratio 2.95 % 06/15/19 20:27 Urine Color Yellow (Yellow) 06/15/19 17:00 Urine Turbidity Clear (Clear) 06/15/19 17:00 Urine pH 6.0 (5.0-7.0) 06/15/19 17:00 Ur Specific [employer] 1.036 (1.003-1.030) H 06/15/19 17:00 Urine Protein <15 mg/dl mg/dL (Negative) 06/15/19 17:00 Urine Glucose (UA) Neg mg/dL (Negative) 06/15/19 17:00 Urine Ketones Neg mg/dL (Negative) 06/15/19 17:00 Urine Blood Neg (Negative) 06/15/19 17:00 Urine Nitrite Neg (Negative) 06/15/19 17:00 Urine Bilirubin Neg (Negative) 06/15/19 17:00 Urine Urobilinogen < 2.0 mg/dL (<2.0) 06/15/19 17:00 Ur Leukocyte Esterase Neg (Negative) 06/15/19 17:00 Urine WBC (Auto) 1.0 /HPF (0.0-6.0) 06/15/19 17:00 Urine RBC (Auto) 1.0 /HPF (0.0-6.0) 06/15/19 17:00 Active Medications - Current Medications Current Medications: Generic Name Dose Route Start Last Admin Trade Name Freq PRN Reason Stop Dose Admin Acetaminophen 650 mg 06/15/19 20:26 Tylenol PO Q4H PRN Pain MILD(1-3)/Fever >100.5/LOZANO Aspirin 81 mg 06/17/19 10:00 Baby Aspirin PO DAILY [facility] Atorvastatin Calcium 40 mg 06/15/19 22:00 06/15/19 21:37 Lipitor PO Not Given QHS [facility] Clopidogrel Bisulfate 75 mg 06/18/19 08:00 Plavix PO QPM [facility] Cyanocobalamin 1,000 mcg 06/15/19 21:00 06/16/19 10:21 Vitamin B-12 PO Not Given DAILY [facility] Famotidine 20 mg 06/15/19 22:00 06/16/19 10:20 Pepcid IV 20 mg BID [facility] Administration Insulin Human Lispro 0 unit 06/16/19 07:30 06/16/19 13:00 Humalog SUB-Q Not Given ACHS [facility] Protocol Isosorbide Dinitrate 120 mg 06/15/19 22:00 06/16/19 10:21 Isordil Titradose PO Not Given BID [facility] Metformin HCl 500 mg 06/15/19 22:00 06/16/19 10:21 Glucophage PO Not Given BID [facility] Metoprolol Tartrate 50 mg 06/16/19 08:00 06/16/19 08:00 Metoprolol PO Not Given TID [facility] Morphine Sulfate 2 mg 06/15/19 20:27 Morphine IV Q4H PRN Pain, Moderate (4-6) Ondansetron HCl 4 mg 06/15/19 20:26 Zofran IV Q8H PRN Nausea And Vomiting Ranolazine 500 mg 06/15/19 21:00 06/16/19 10:21 Ranexa Er PO Not Given DAILY [facility] Sodium Chloride 10 ml 06/15/19 22:00 06/16/19 10:20 Sodium Chloride Flush Syringe 10 Ml IV 10 ml BID [facility] Administration Sodium Chloride 10 ml 06/15/19 20:26 Sodium Chloride Flush Syringe 10 Ml IV PRN PRN LINE FLUSH Nutrition/Malnutrition Assess - Dietary Evaluation Nutrition/Malnutrition Findings: Nutrition Notes Start: 06/16/19 12:22 Freq: Status: Active Protocol: Document 06/16/19 12:22 LM (Rec: 06/16/19 12:32 LM [id number]) Nutrition Notes Need for Assessment generated from: rn primary care,MST Initial or Follow up Assessment Current Diagnosis Coronary Artery Disease, Diabetes,Hypertension,Stroke, Hyperlipidemia Other Pertinent Diagnosis Dementia, DVT, GERD Current Diet NPO Labs/Tests Na 134 Pertinent Medications Reviewed Height 5 ft 10 in Weight 78 kg Usual Body Weight 79.54 kg [place] Body Weight (kg) 75.45 BMI 24.6 Weight Status Appropriate Subjective/Other Information RN screen for MST. Pt nonverbal. Pt's at bedside to answer questions. Per , pt eats well at home and gets Boost. Pt's stated that pt lost 8 lb 1 year ago after dx of dementia but is now back at [facility]. Pt's denied any problems chewing or swallowing and thinks pt can eat normal food. Per , pt has had Glucerna in the past and likes chocolate if ONS is needed while pt is here. 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 No Is Patient Ambulatory and/or Out of Bed No REE-([facility]-confined to bed) [phone] Calculation Used for Recommendations [facility] Additional Notes Protein: 78-94g (1-1.2g/kg) Fluid: 1 ml/kcal Nutrition Intervention Change Diet Order: recommend diet advancement to cardiac/consistent CHO or per ASBESTOS CEMENT SHEET SUPERVISOR when medically feasible Goal #1 diet advancement when medically feasible Anticipated Discharge Needs: cardiac/consistent CHO Follow-Up By: 06/18/19 Additional Comments F/U for diet advancement, intakes, need for ONS
[2019-06-17] MEDS: INSULIN LISPRO 100 UNIT/ML SUB-Q SCH ×4 (08:35→22:41)
--- NOTE | 2019-06-17 09:12 | Progress Note ---
Subjective Date of service: 06/17/19 Interval history: stable stroke scale zero sanam diorsfer to the floor will plan MRI on Tuesday further w/u planned such as review the ECHO Objective - Vital Sign Vital Signs - 12hr 06/17/19 06/17/19 06/17/19 02:20 05:04 05:23 Temperature 98.2 F Pulse Rate 84 67 69 Respiratory 22 Rate Blood Pressure 128/73 O2 Sat by Pulse 91 94 Oximetry 06/17/19 06/17/19 05:24 07:33 Temperature 98.0 F Pulse Rate 70 69 Respiratory 20 Rate Blood Pressure 106/59 O2 Sat by Pulse 95 95 Oximetry - Laboratory Findings CBC and BMP: 06/16/19 03:57 06/16/19 03:57 Abnormal Lab Findings: Abnormal Labs 06/15/19 06/15/19 06/15/19 13:11 13:11 13:11 MCV 99 H MCH 34 H MCHC 35 H [place] % (Auto) 13.6 H Lymph # [place] # 0.9 H Seg Neutrophils % Sodium 130 L Potassium 5.3 H Chloride 93.6 L Creatinine 0.6 L Glucose 128 H POC Glucose Hemoglobin A1c Total Creatine Kinase 51 L CK-MB (CK-2) Rel Index 4.7 H Ur Specific [place] 06/15/19 06/15/19 06/16/19 13:17 17:00 03:57 MCV 98 H MCH 35 H MCHC 35 H [place] % (Auto) 11.2 H Lymph # 1.1 L [place] # 0.9 H Seg Neutrophils % 70.5 H Sodium Potassium Chloride Creatinine Glucose POC Glucose 112 H Hemoglobin A1c Total Creatine Kinase CK-MB (CK-2) Rel Index Ur Specific [place] 1.036 H 06/16/19 06/16/19 06/16/19 03:57 03:57 08:43 MCV MCH MCHC [place] % (Auto) Lymph # [place] # Seg Neutrophils % Sodium 134 L Potassium Chloride 94.9 L Creatinine 0.6 L Glucose 105 H POC Glucose 116 H Hemoglobin A1c 6.7 H Total Creatine Kinase CK-MB (CK-2) Rel Index Ur Specific [place] 06/16/19 06/16/19 06/16/19 11:40 18:24 21:49 MCV MCH MCHC [place] % (Auto) Lymph # [place] # Seg Neutrophils % Sodium Potassium Chloride Creatinine Glucose POC Glucose 126 H 201 H 149 H Hemoglobin A1c Total Creatine Kinase CK-MB (CK-2) Rel Index Ur Specific [place] 06/17/19 07:47 MCV MCH MCHC [place] % (Auto) Lymph # [place] # Seg Neutrophils % Sodium Potassium Chloride Creatinine Glucose POC Glucose 158 H Hemoglobin A1c Total Creatine Kinase CK-MB (CK-2) Rel Index Ur Specific [place]
--- NOTE | 2019-06-17 10:05 | Consultation ---
HISTORY OF PRESENT ILLNESS: This is an 88-year-old white male that presents to the [facility] with the onset of left-sided facial weakness, drooping, difficulty with speech and subsequently the noted that he was weak, had weakness in his left leg. EMS was called. The patient was brought to the hospital have been taking a number of medications, which are listed in the intake sheet including Plavix, isosorbide, metoprolol, pravastatin, Ranexa ER, aspirin and B12 and on presentation to the hospital, he was noted to have left-sided weakness. He is felt to have a stroke scale of 20 with moderate to severe stroke. He subsequently had a contrast CT scan, which appeared to be negative for any acute lesion and the patient was assessed with a CTA of the head and neck, this had previously been done on 2018, which showed left side disease and stenosis. The patient was subsequently admitted to the hospital in the ICU. I am seeing him now later after being admitted with a very high stroke scale. He subsequently did completely resolve and left-sided weakness became improved after initial treatment in the Emergency Room. I am seeing him in the ICU following this, his blood pressure currently is 127/86, pulse rate 80, respirations 18. He is fully alert, responsive. 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 Motor tone symmetrical. Visual white full. Speech pattern is normal for 88-year-old. Pupils equal, round, reactive to light. Cranial nerves are intact. No focal motor weakness is present. I would rate his stroke scale at present 0. IMPRESSION: Acute ischemic stroke on presentation to the Emergency Room with total resolution of symptoms following treatment in the ED. Please see notes regarding CTA, CT of the head and neck CT and also from my review of the chart. He had had similar studies in 02/2019. PLAN: I think I will review over the studies with Dr. Scott on Tuesday to see about the issue of whether he has any residual stenosis. It is interesting that comparing the two reports it seems at this is improved. So there may have been a clot producing the stenosis in February, he may be propagating clots and atherosclerotic lesion and this will be 1 explanation for the rapidity of onset and the fact that the CTAs are changing dynamically over time. Some of this may be soft thrombus forming within the intracranial arteries that lysis and then propagates certainly this would be one explanation for the situation. I certainly do not think this was a seizure, it was witnessed. It was neither focal origin unless seizure occurred. The is an excellent historian, did not notice this. Therefore, a vascular event is the most likely cause of this issue. At this point, the patient's condition is entirely stable. I think it is okay for him to eat. He probably can be transferred to the floor after this period of observation in the ICU. JOB# [id number] SHRUTI/SACHIN
[2019-06-17] MEDS: ASPIRIN 81 MG TAB CHEW PO SCH (10:18)
[2019-06-17] MEDS: RANOLAZINE ER 500 MG TAB 12HR PO SCH (10:18)
[2019-06-17] MEDS: CYANOCOBALAMIN (VIT B-12) 1000 MCG TAB PO SCH (10:18)
[2019-06-17] MEDS: FAMOTIDINE 20 MG/2 ML INJ IV SCH ×2 (10:18→22:12)
[2019-06-17] MEDS: METOPROLOL TARTRATE 50 MG TAB PO SCH ×3 (10:20→20:52)
--- NOTE | 2019-06-17 12:52 | Consultation ---
History of Present Illness - Reason for Consult Consult date: 06/17/19 Carotid Artery Stenosis Requesting physician: JOHANN FISHER - History of Present Illness The patient is an 88 year old male with a history of carotid stenosis who was brought to the hospital, by EMS, after his called when she noticed that he wasn't moving his left side. She states that she and his caregiver were assisting him and noted that his left side of his face wasn't moving and that he seemed to be leaning to the right. When the tried to get him up to a chair they and to drag him because he was unable to move his left leg. EMS transported him to [facility] ER and administration of TPA was recommended. The states that prior to administering the TPA the patient began to move his left side however it was recommended give the TPA anyway. She states he has a history of TIAs and was recently here in February 2019 however the TIA affected his right side. He had no intervention at that time despite having approximately 90% stenosis of the left internal carotid artery because the patient does not wish to undergo surgery. The states the patient seems to be deconditioned at this time, after spending 2 days in the bed, but has no additional complaints. Past History Past Medical History: CAD, GERD, heart failure, hypertension, hyperlipidemia, stroke, other (dementia) Past Surgical History: CABG (Pacemaker), PTCA, Other (Right CEA) Social history: Family history: no significant family history Medications and Allergies Allergies Allergy/AdvReac Type Severity Reaction Status Date / Time No Known Allergies Allergy Verified 03/04/19 17:04 Home Medications Medication Instructions Recorded Confirmed Last Taken Type Clopidogrel [Plavix] 75 mg PO QPM 03/04/19 06/15/19 06/14/19 18:00 History Isosorbide Dinitrate [Isosorbide 120 mg PO BID 03/04/19 06/15/19 06/15/19 09:00 History Dinitrate ER] Metoprolol [Lopressor TAB] 50 mg PO TID 03/04/19 06/15/19 06/15/19 09:00 History Pravastatin Sodium [Pravastatin] 10 mg PO QHS 03/04/19 06/15/19 06/14/19 18:00 History Ranolazine ER [Ranexa ER] 500 mg PO DAILY 03/04/19 06/15/19 06/14/19 18:00 Histo ry Ubidecarenone [Co Q10] 100 mg PO DAILY 03/04/19 06/15/19 06/15/19 09:00 History Aspirin [Aspirin BABY CHEW TAB] 81 mg PO DAILY 06/15/19 06/15/19 06/14/19 18:00 History Cyanocobalamin (Vitamin B-12) 1,000 mcg PO DAILY 06/15/19 06/15/19 06/15/19 09:00 History [Vitamin B-12] Nitroglycerin [Nitrostat] 0.4 mg SL Q5M PRN 06/15/19 06/15/19 06/09/19 19:12 History Ranitidine HCl 300 mg PO DAILY 06/15/19 06/15/19 06/15/19 09:00 History metFORMIN 500 mg PO BID 06/15/19 06/15/19 06/15/19 09:00 History Active Meds: Active Medications Acetaminophen (Tylenol) 650 mg PO Q4H PRN PRN Reason: Pain MILD(1-3)/Fever >100.5/LOZANO Aspirin (Baby Aspirin) 81 mg PO DAILY [facility] Last Admin: 06/17/19 10:18 Dose: 81 mg Documented by: Atorvastatin Calcium (Lipitor) 40 mg PO QHS [facility] Last Admin: 06/16/19 21:55 Dose: 40 mg Documented by: Clopidogrel Bisulfate (Plavix) 75 mg PO QPM [facility] Cyanocobalamin (Vitamin B-12) 1,000 mcg PO DAILY [facility] Last Admin: 06/17/19 10:18 Dose: 1,000 mcg Documented by: Famotidine (Pepcid) 20 mg IV BID [facility] Last Admin: 06/17/19 10:18 Dose: 20 mg Documented by: Insulin Human Lispro (Humalog) 0 unit SUB-Q [facility]; Protocol Last Admin: 06/17/19 08:35 Dose: 2 unit Documented by: Isosorbide Mononitrate (Imdur) 120 mg PO BID [facility] Last Admin: 06/17/19 10:18 Dose: 120 mg Documented by: Metoprolol Tartrate (Metoprolol) 50 mg PO TID [facility] Last Admin: 06/17/19 10:20 Dose: 50 mg Documented by: Morphine Sulfate (Morphine) 2 mg IV Q4H PRN PRN Reason: Pain, Moderate (4-6) Ondansetron HCl (Zofran) 4 mg IV Q8H PRN PRN Reason: Nausea And Vomiting Ranolazine (Ranexa Er) 500 mg PO DAILY [facility] Last Admin: 06/17/19 10:18 Dose: 500 mg Documented by: Sodium Chloride (Sodium Chloride Flush Syringe 10 Ml) 10 ml IV BID [facility] Last Admin: 06/17/19 10:18 Dose: 10 ml Documented by: Sodium Chloride (Sodium Chloride Flush Syringe 10 Ml) 10 ml IV PRN PRN PRN Reason: LINE FLUSH Review of Systems All systems: negative Exam - Constitutional Vitals: Temp Pulse Resp BP Pulse Ox 98.0 F 69 20 106/59 94 06/17/19 07:33 06/17/19 10:00 06/17/19 07:33 06/17/19 07:33 06/17/19 10:00 General appearance: Present: no acute distress - Respiratory Respiratory effort: normal - Cardiovascular Rhythm: regular - Extremities Extremities: no ischemia - Abdominal General gastrointestinal: Present: soft, non-tender, non-distended - Musculoskeletal Musculoskeletal: generalized weakness - Psychiatric Psychiatric: cooperative - Neurologic Neurologic: no focal deficits Results - Labs CBC & Chem 7: 06/16/19 03:57 06/16/19 03:57 Labs: Abnormal lab results 06/16/19 06/16/19 06/16/19 Range/Units 11:40 18:24 21:49 POC Glucose 126 H 201 H 149 H (70-105) 06/17/19 06/17/19 Range/Units 07:47 11:27 POC Glucose 158 H 288 H (70-105) - Imaging and Cardiology CT Scan - head: other (CTA Head/Neck films were reviewed 90% stenosis Left ICA) Assessment and Plan Patient with Left ICA stenosis of 90% however his symptoms, during this admission, were not related to this lesion. Additionally the patient has made h is wishes clear that he is not interested in undergoing intervention for his carotid artery stenosis. Recommend continuing his antiplatelet therapy and statin therapy. Would not recommend vascular surgical intervention, per the patient's wishes.
--- NOTE | 2019-06-17 13:51 | Progress Note ---
Assessment and Plan Assessment and plan: Patient is a 88-year-old man with a history of vascular dementia, TIA, dyslipidemia, PPM and type 2 DM who [facility] with [facility] like symptoms. As per his , his last known well time is 12:15 PM. Stroke deficits include left-sided weakness in the arm and leg, facial droop. He rec eived tPA on 06/15/2019 around 1321. Symptoms resolved, doing well. 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 * CT head without contrast: No acute abnormality * pCXR: No acute findings Acute ischemic stroke s/p tPA: treat with ASA and statin, no MRI due to PPM present, Neurology following Hypertension: continue anti-hypertensives T2 DM: accucheck, ada diet, accuchecks Dyslipidemia: treat with statins H/o PPM High grade stenosis Left ICA: consulted Vascular Surgeon, input noted, medical management DVT ppx: start heparin DNR repeat CT head on Tuesday Disposition: JOHN History Interval history: Patient was seen and examined. Follow-up on current diagnosis CVA. Overnight uneventful as no events directly reported to me. Patient denies any chest pain, shortness breath, nausea/vomiting or severe headaches. Imaging, nursing note, chart, labs and old chart reviewed. Discussed with patient with at bedside. Hospitalist Physical - Physical exam Narrative exam: Gen: thin frail, NAD, Awake, Alert, Orientated x 1 HEENT: NCAT, EOMI, PERRL, OP Clear Neck: supple, no adenopathy, no thyromegaly, no JVD CVS/Heart: RRR, normal S1S2, pulses present bilaterally Chest/Lungs: CTA B, Symmetrical chest expansion, good air entry bilaterally GI/Abdomen: soft, NTND, good bowel sounds, no guarding or rebound /Bladder: no suprapubic tenderness, no CVA or paraspinal tenderness Extermity/Skin: no c/c/e, no obvious rash MSK: FROM x 4 Neuro: CN 2-12 grossly intact, no new focal deficits Psych: calm - Constitutional Vitals: Temp Pulse Resp BP Pulse Ox 98.5 F 64 20 101/54 92 06/17/19 13:02 06/17/19 13:02 06/17/19 13:02 06/17/19 13:02 06/17/19 13:02 General appearance: Present: no acute distress MCKENZIE score - Mckenzie Score Aspirin use within the Past 7 Days: (1) Yes Results - Labs CBC & Chem 7: 06/16/19 03:57 06/16/19 03:57 Labs: Laboratory Last Values WBC 7.7 K/mm3 (4.5-11.0) 06/16/19 03:57 RBC 3.90 M/mm3 (3.65-5.03) 06/16/19 03:57 Hgb 13.5 gm/dl (11.8-15.2) 06/16/19 03:57 Hct 38.4 % (35.5-45.6) 06/16/19 03:57 MCV 98 fl (84-94) H 06/16/19 03:57 MCH 35 pg (28-32) H 06/16/19 03:57 MCHC 35 % (32-34) H 06/16/19 03:57 RDW 13.9 % (13.2-15.2) 06/16/19 03:57 Plt Count 217 K/mm3 (140-440) 06/16/19 03:57 Lymph % (Auto) 14.5 % (13.4-35.0) 06/16/19 03:57 Davie % (Auto) 11.2 % (0.0-7.3) H 06/16/19 03:57 Eos % (Auto) 2.9 % (0.0-4.3) 06/16/19 03:57 Baso % (Auto) 0.9 % (0.0-1.8) 06/16/19 03:57 Lymph # 1.1 K/mm3 (1.2-5.4) L 06/16/19 03:57 Davie # 0.9 K/mm3 (0.0-0.8) H 06/16/19 03:57 Eos # 0.2 K/mm3 (0.0-0.4) 06/16/19 03:57 Baso # 0.1 K/mm3 (0.0-0.1) 06/16/19 03:57 Seg Neutrophils % 70.5 % (40.0-70.0) H 06/16/19 03:57 Seg Neutrophils # 5.5 K/mm3 (1.8-7.7) 06/16/19 03:57 PT 13.6 Sec. (12.2-14.9) 06/15/19 13:11 INR 1.03 (0.87-1.13) 06/15/19 13:11 APTT 27.8 Sec. (24.2-36.6) 06/15/19 13:11 Thrombin Time 16.0 Sec. (15.1-19.6) 06/15/19 13:11 Sodium 134 mmol/L (137-145) L 06/16/19 03:57 Potassium 4.8 mmol/L (3.6-5.0) 06/16/19 03:57 Chloride 94.9 mmol/L (98-107) L 06/16/19 03:57 Carbon Dioxide 25 mmol/L (22-30) 06/16/19 03:57 Anion Gap 19 mmol/L 06/16/19 03:57 BUN 11 mg/dL (9-20) 06/16/19 03:57 Creatinine 0.6 mg/dL (0.8-1.5) L 06/16/19 03:57 Estimated GFR > 60 ml/min 06/16/19 03:57 BUN/Creatinine Ratio 18 % 06/16/19 03:57 Glucose 105 mg/dL (75-100) H 06/16/19 03:57 POC Glucose 288 (70-105) H 06/17/19 11:27 Hemoglobin A1c 6.7 % (4-6) H 06/16/19 03:57 Calcium 9.7 mg/dL (8.4-10.2) 06/16/19 03:57 Magnesium 1.70 mg/dL (1.7-2.3) 06/15/19 13:11 Total Bilirubin 0.70 mg/dL (0.1-1.2) 06/16/19 03:57 AST 15 units/L (5-40) 06/16/19 03:57 ALT 12 units/L (7-56) 06/16/19 03:57 Alkaline Phosphatase 41 units/L (35-129) 06/16/19 03:57 Total Creatine Kinase 51 units/L (55-170) L 06/15/19 13:11 CK-MB (CK-2) 2.4 ng/mL (0.0-4.0) 06/15/19 13:11 CK-MB (CK-2) Rel Index 4.7 (0-4) H 06/15/19 13:11 Troponin T < 0.010 ng/mL (0.00-0.029) 06/15/19 13:11 Total Protein 7.2 g/dL (6.3-8.2) 06/16/19 03:57 Albumin 4.3 g/dL (3.9-5) 06/16/19 03:57 Albumin/Globulin Ratio 1.5 % 06/16/19 03:57 Triglycerides 118 mg/dL (2-149) 06/15/19 20:27 Cholesterol 142 mg/dL (50-199) 06/15/19 20:27 LDL Cholesterol Direct 73 mg/dL (50-130) 06/15/19 20:27 HDL Cholesterol 48 mg/dL (40-59) 06/15/19 20:27 Cholesterol/HDL Ratio 2.95 % 06/15/19 20:27 Urine Color Yellow (Yellow) 06/15/19 17:00 Urine Turbidity Clear (Clear) 06/15/19 17:00 Urine pH 6.0 (5.0-7.0) 06/15/19 17:00 Ur Specific [place] 1.036 (1.003-1.030) H 06/15/19 17:00 Urine Protein <15 mg/dl mg/dL (Negative) 06/15/19 17:00 Urine Glucose (UA) Neg mg/dL (Negative) 06/15/19 17:00 Urine Ketones Neg mg/dL (Negative) 06/15/19 17:00 Urine Blood Neg (Negative) 06/15/19 17:00 Urine Nitrite Neg (Negative) 06/15/19 17:00 Urine Bilirubin Neg (Negative) 06/15/19 17:00 Urine Urobilinogen < 2.0 mg/dL (<2.0) 06/15/19 17:00 Ur Leukocyte Esterase Neg (Negative) 06/15/19 17:00 Urine WBC (Auto) 1.0 /HPF (0.0-6.0) 06/15/19 17:00 Urine RBC (Auto) 1.0 /HPF (0.0-6.0) 06/15/19 17:00 Active Medications - Current Medications Current Medications: Generic Name Dose Route Start Last Admin Trade Name Freq PRN Reason Stop Dose Admin Acetaminophen 650 mg 06/15/19 20:26 Tylenol PO Q4H PRN Pain MILD(1-3)/Fever >100.5/LOZANO Aspirin 81 mg 06/17/19 10:00 06/17/19 10:18 Baby Aspirin PO 81 mg DAILY NICOLLE Administration Atorvastatin Calcium 40 mg 06/15/19 22:00 06/16/19 21:55 Lipitor PO 40 mg QHS NICOLLE Administration Clopidogrel Bisulfate 75 mg 06/18/19 08:00 Plavix PO QPM NICOLLE Cyanocobalamin 1,000 mcg 06/15/19 21:00 06/17/19 10:18 Vitamin B-12 PO 1,000 mcg DAILY NIOCLLE Administration Famotidine 20 mg 06/15/19 22:00 06/17/19 10:18 Pepcid IV 20 mg BID NICOLLE Administration Insulin Human Lispro 0 unit 06/16/19 07:30 06/17/19 13:11 Humalog SUB-Q 4 unit ACHS [facility] Administration Protocol Isosorbide Mononitrate 120 mg 06/17/19 10:00 06/17/19 10:18 Imdur PO 120 mg BID NICOLLE Administration Metoprolol Tartrate 50 mg 06/16/19 08:00 06/17/19 13:11 Metoprolol PO 50 mg TID NICOLLE Administration Morphine Sulfate 2 mg 06/15/19 20:27 Morphine IV Q4H PRN Pain, Moderate (4-6) Ondansetron HCl 4 mg 06/15/19 20:26 Zofran IV Q8H PRN Nausea And Vomiting Ranolazine 500 mg 06/15/19 21:00 06/17/19 10:18 Ranexa Er PO 500 mg DAILY [facility]ICOLLE Administration Sodium Chloride 10 ml 06/15/19 22:00 06/17/19 10:18 Sodium Chloride Flush Syringe 10 Ml IV 10 ml BID NICOLLE Administration Sodium Chloride 10 ml 06/15/19 20:26 Sodium Chloride Flush Syringe 10 Ml IV PRN PRN LINE FLUSH Nutrition/Malnutrition Assess - Dietary Evaluation Nutrition/Malnutrition Findings: Nutrition Notes Start: 06/16/19 12:22 Freq: Status: Active Protocol: Document 06/16/19 12:22 LM (Rec: 06/16/19 12:32 LM [id number]) Nutrition Notes 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 Pt nonverbal. Pt's at bedside to answer questions. Per , pt eats well at home and gets Boost. Pt's stated that pt lost 8 lb 1 year ago after dx of dementia but is now back at [facility]. Pt's denied any problems chewing or swallowing and thinks pt can eat normal food. Per , pt has had Glucerna in the past and likes chocolate if ONS is needed while pt is here. Burn Absent Trauma Absent GI Symptoms None Current % PO Negligible Minimum of two criteria No Reduced Assembler Filters Strength Measurably Reduced (severe) #1 Nutrition Diagnosis Inadequate oral intake Etiology pt needing STAFF SOFTWARE ENGINEER evaluation, acute CVA As Evidenced by Signs and Symptoms pt NPO Is patient on ventilator? No Is Patient Ambulatory and/or Out of Bed No REE-([facility]-confined to bed) 5639.584 Calculation Used for Recommendations [facility] Additional Notes Protein: 78-94g (1-1.2g/kg) Fluid: 1 ml/kcal Nutrition Intervention Change Diet Order: recommend diet advancement to cardiac/consistent CHO or per STAFF SOFTWARE ENGINEER when medically feasible Goal #1 diet advancement when medically feasible Anticipated Discharge Needs: cardiac/consistent CHO Follow-Up By: 06/18/19 Additional Comments F/U for diet advancement, intakes, need for ONS
[2019-06-18] MEDS: INSULIN LISPRO 100 UNIT/ML SUB-Q SCH ×5 (07:40→22:04)
[2019-06-18] MEDS: METOPROLOL TARTRATE 50 MG TAB PO SCH ×3 (08:30→22:06)
[2019-06-18] MEDS: CLOPIDOGREL 75 MG TAB PO SCH ×2 (08:32→18:55)
--- NOTE | 2019-06-18 09:14 | Cat Scan Report ---
CT HEAD WITHOUT CONTRAST INDICATION : CVA. TECHNIQUE: Axial imaging performed from the skull apex through the skull base without the use of con trast. Sagittal and coronal reformatted images. All CT scans at this location are performed using C T dose reduction for ALARA by means of automated exposure control. COMPARISON: 06/15/2019 FINDINGS: Parenchyma: Mild diffuse cortical volume loss and moderate chronic microangiopathy in the white alanis er are stable. Chronic lacunar infarct in the right thalamus is stable. No acute parenchymal abnormal ity or hemorrhage has developed. Ventricles: Ventricles are normal in size and appear symmetric. Bones: No acute osseous abnormality. Sinuses: Sinuses and mastoid air cells are clear. Soft tissues: Soft tissues including the orbits appear normal. IMPRESSION: No acute intracranial process. Volume loss, chronic white matter changes and chronic lacu leanne infarct in the right thalamus. Signer Name: Campos Scott Jr, MD Signed: 06/18/2019 9:09 AM Workstation Name: [id number]
[2019-06-18] MEDS: FAMOTIDINE 20 MG/2 ML INJ IV SCH (09:17)
[2019-06-18] MEDS: CYANOCOBALAMIN (VIT B-12) 1000 MCG TAB PO SCH (09:17)
[2019-06-18] MEDS: ASPIRIN 81 MG TAB CHEW PO SCH (09:17)
[2019-06-18] MEDS: RANOLAZINE ER 500 MG TAB 12HR PO SCH (09:17)
[2019-06-18] MEDS: FAMOTIDINE 20 MG TAB PO SCH ×2 (12:50→22:06)
--- NOTE | 2019-06-18 13:45 | Progress Note ---
Assessment and Plan Assessment and plan: Patient is a 88-year-old man with a history of vascular dementia, TIA, dyslipidemia, PPM and type 2 DM who presented to [facility] ED with stroke like symptoms. As per his , his last known well time is 12:15 PM. Stroke deficits include left-sided weakness in the arm and leg, facial droop. He rec eived tPA on 06/15/2019 around 1321. Symptoms resolved, doing well. 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 Follow-up on current diagnosis CVA. Overnight uneventful as no events directly reported to me. Patient denies any chest pain, shortness breath, nausea/vomiting or severe headaches. Imaging, nursing note, chart, labs and old chart reviewed. Discussed with patient with at bedside. Hospitalist Physical - Physical exam Narrative exam: Gen: thin frail, NAD, Awake, Alert, Orientated x 1 HEENT: NCAT, EOMI, PERRL, OP Clear Neck: supple, no adenopathy, no thyromegaly, no JVD CVS/Heart: RRR, normal S1S2, pulses present bilaterally Chest/Lungs: CTA B, Symmetrical chest expansion, good air entry bilaterally GI/Abdomen: soft, NTND, good bowel sounds, no guarding or rebound /Bladder: no suprapubic tenderness, no CVA or paraspinal tenderness Extermity/Skin: no c/c/e, no obvious rash MSK: FROM x 4 Neuro: CN 2-12 grossly intact, no new focal deficits Psych: calm - Constitutional Vitals: Temp Pulse Resp BP Pulse Ox 98.5 F 66 20 127/62 91 06/18/19 07:54 06/18/19 09:18 06/18/19 07:54 06/18/19 09:18 06/18/19 07:54 General appearance: Present: no acute distress EVER score - Ever Score Aspirin use within the Past 7 Days: (1) Yes Results - Labs CBC & Chem 7: 06/16/19 03:57 06/16/19 03:57 Labs: Laboratory Last Values WBC 7.7 K/mm3 (4.5-11.0) 06/16/19 03:57 RBC 3.90 M/mm3 (3.65-5.03) 06/16/19 03:57 Hgb 13.5 gm/dl (11.8-15.2) 06/16/19 03:57 Hct 38.4 % (35.5-45.6) 06/16/19 03:57 MCV 98 fl (84-94) H 06/16/19 03:57 MCH 35 pg (28-32) H 06/16/19 03:57 MCHC 35 % (32-34) H 06/16/19 03:57 RDW 13.9 % (13.2-15.2) 06/16/19 03:57 Plt Count 217 K/mm3 (140-440) 06/16/19 03:57 Lymph % (Auto) 14.5 % (13.4-35.0) 06/16/19 03:57 [place] % (Auto) 11.2 % (0.0-7.3) H 06/16/19 03:57 Eos % (Auto) 2.9 % (0.0-4.3) 06/16/19 03:57 Baso % (Auto) 0.9 % (0.0-1.8) 06/16/19 03:57 Lymph # 1.1 K/mm3 (1.2-5.4) L 06/16/19 03:57 [place] # 0.9 K/mm3 (0.0-0.8) H 06/16/19 03:57 Eos # 0.2 K/mm3 (0.0-0.4) 06/16/19 03:57 Baso # 0.1 K/mm3 (0.0-0.1) 06/16/19 03:57 Seg Neutrophils % 70.5 % (40.0-70.0) H 06/16/19 03:57 Seg Neutrophils # 5.5 K/mm3 (1.8-7.7) 06/16/19 03:57 PT 13.6 Sec. (12.2-14.9) 06/15/19 13:11 INR 1.03 (0.87-1.13) 06/15/19 13:11 APTT 27.8 Sec. (24.2-36.6) 06/15/19 13:11 Thrombin Time 16.0 Sec. (15.1-19.6) 06/15/19 13:11 Sodium 134 mmol/L (137-145) L 06/16/19 03:57 Potassium 4.8 mmol/L (3.6-5.0) 06/16/19 03:57 Chloride 94.9 mmol/L (98-107) L 06/16/19 03:57 Carbon Dioxide 25 mmol/L (22-30) 06/16/19 03:57 Anion Gap 19 mmol/L 06/16/19 03:57 BUN 11 mg/dL (9-20) 06/16/19 03:57 Creatinine 0.6 mg/dL (0.8-1.5) L 06/16/19 03:57 Estimated GFR > 60 ml/min 06/16/19 03:57 BUN/Creatinine Ratio 18 % 06/16/19 03:57 Glucose 105 mg/dL (75-100) H 06/16/19 03:57 POC Glucose 216 (70-105) H 06/18/19 12:05 Hemoglobin A1c 6.7 % (4-6) H 06/16/19 03:57 Calcium 9.7 mg/dL (8.4-10.2) 06/16/19 03:57 Magnesium 1.70 mg/dL (1.7-2.3) 06/15/19 13:11 Total Bilirubin 0.70 mg/dL (0.1-1.2) 06/16/19 03:57 AST 15 units/L (5-40) 06/16/19 03:57 ALT 12 units/L (7-56) 06/16/19 03:57 Alkaline Phosphatase 41 units/L (35-129) 06/16/19 03:57 Total Creatine Kinase 51 units/L (55-170) L 06/15/19 13:11 CK-MB (CK-2) 2.4 ng/mL (0.0-4.0) 06/15/19 13:11 CK-MB (CK-2) Rel Index 4.7 (0-4) H 06/15/19 13:11 Troponin T < 0.010 ng/mL (0.00-0.029) 06/15/19 13:11 Total Protein 7.2 g/dL (6.3-8.2) 06/16/19 03:57 Albumin 4.3 g/dL (3.9-5) 06/16/19 03:57 Albumin/Globulin Ratio 1.5 % 06/16/19 03:57 Triglycerides 118 mg/dL (2-149) 06/15/19 20:27 Cholesterol 142 mg/dL (50-199) 06/15/19 20:27 LDL Cholesterol Direct 73 mg/dL (50-130) 06/15/19 20:27 HDL Cholesterol 48 mg/dL (40-59) 06/15/19 20:27 Cholesterol/HDL Ratio 2.95 % 06/15/19 20:27 Urine Color Yellow (Yellow) 06/15/19 17:00 Urine Turbidity Clear (Clear) 06/15/19 17:00 Urine pH 6.0 (5.0-7.0) 06/15/19 17:00 Ur Specific [place] 1.036 (1.003-1.030) H 06/15/19 17:00 Urine Protein <15 mg/dl mg/dL (Negative) 06/15/19 17:00 Urine Glucose (UA) Neg mg/dL (Negative) 06/15/19 17:00 Urine Ketones Neg mg/dL (Negative) 06/15/19 17:00 Urine Blood Neg (Negative) 06/15/19 17:00 Urine Nitrite Neg (Negative) 06/15/19 17:00 Urine Bilirubin Neg (Negative) 06/15/19 17:00 Urine Urobilinogen < 2.0 mg/dL (<2.0) 06/15/19 17:00 Ur Leukocyte Esterase Neg (Negative) 06/15/19 17:00 Urine WBC (Auto) 1.0 /HPF (0.0-6.0) 06/15/19 17:00 Urine RBC (Auto) 1.0 /HPF (0.0-6.0) 06/15/19 17:00 Active Medications - Current Medications Current Medications: Generic Name Dose Route Start Last Admin Trade Name Freq PRN Reason Stop Dose Admin Acetaminophen 650 mg 06/15/19 20:26 06/17/19 22:19 Tylenol PO 650 mg Q4H PRN Administration Pain MILD(1-3)/Fever >100.5/LOZANO Aspirin 81 mg 06/17/19 10:00 06/18/19 09:17 Baby Aspirin PO 81 mg DAILY NICOLLE Administration Atorvastatin Calcium 40 mg 06/15/19 22:00 06/17/19 22:12 Lipitor PO 40 mg QHS NICOLLE Administration Clopidogrel Bisulfate 75 mg 06/18/19 08:00 06/18/19 08:32 Plavix PO 75 mg QPM NICOLLE Administration Cyanocobalamin 1,000 mcg 06/15/19 21:00 06/18/19 09:17 Vitamin B-12 PO 1,000 mcg DAILY NICOLLE Administration Famotidine 20 mg 06/18/19 10:00 06/18/19 12:50 Pepcid PO Not Given BID [facility] Insulin Human Lispro 0 unit 06/16/19 07:30 06/18/19 12:28 Humalog SUB-Q 3 unit ACHS NICOLLE Administration Protocol Isosorbide Mononitrate 120 mg 06/17/19 10:00 06/18/19 09:18 Imdur PO 120 mg BID [facility] Administration Metoprolol Tartrate 50 mg 06/16/19 08:00 06/18/19 08:30 Metoprolol PO 50 mg TID NICOLLE Administration Morphine Sulfate 2 mg 06/15/19 20:27 Morphine IV Q4H PRN Pain, Moderate (4-6) Ondansetron HCl 4 mg 06/15/19 20:26 Zofran IV Q8H PRN Nausea And Vomiting Ranolazine 500 mg 06/15/19 21:00 06/18/19 09:17 Ranexa Er PO 500 mg DAILY NICOLLE Administration Sodium Chloride 10 ml 06/15/19 22:00 06/18/19 09:29 Sodium Chloride Flush Syringe 10 Ml IV 10 ml BID NICOLLE Administration Sodium Chloride 10 ml 06/15/19 20:26 Sodium Chloride Flush Syringe 10 Ml IV PRN PRN LINE FLUSH Nutrition/Malnutrition Assess - Dietary Evaluation Nutrition/Malnutrition Findings: Nutrition Notes Start: 06/16/19 12:22 Freq: Status: Active Protocol: Document 06/18/19 13:36 LM (Rec: 06/18/19 13:44 BIPIN [id number]) Nutrition Notes Initial or Follow up Reassessment Current Diagnosis Coronary Artery Disease, Diabetes,Hypertension,Stroke, Hyperlipidemia Other Pertinent Diagnosis Dementia, DVT, GERD Current Diet Cardiac/consistent CHO Labs/Tests POC glu 175 Pertinent Medications Humalog Height 5 ft 10 in Weight 78 kg Usual Body Weight 79.54 kg [place] Body Weight (kg) 75.45 BMI 24.6 Weight Status Appropriate Subjective/Other Information Pt's stated pt ate 1/2 of toast and cereal and some eggs for breakfast. stated that pt cannot feed himself. Will order pt Glucerna with straw. HVAC MECHANICAL ENGINEER recommended regular with thin liquids. Percent of energy/protein needs met: 67%/65% Burn Absent Trauma Absent GI Symptoms None Current % PO Fair (50-74%) Minimum of two criteria No Reduced Parent Educator Strength Measurably Reduced (severe) #1 Nutrition Diagnosis Inadequate oral intake As Evidenced by Signs and Symptoms diet advanced to cardiac/ consistent CHO Diagnosis Progress(for reassessment Improved documentation) Is patient on ventilator? No Is Patient Ambulatory and/or Out of Bed No REE-([facility]-confined to bed) [phone] Calculation Used for Recommendations [facility] Additional Notes Protein: 78-94g (1-1.2g/kg) Fluid: 1 ml/kcal Nutrition Intervention Change Diet Order: Continue cardaic/consisntent CHO Add Supplement/Snack (indicate name/kcal Glucerna chocolate BID /protein ) Provides kCal: 440 Provides Protein (gm) 20 Goal #1 Meet at least 80% of energy and protein needs Anticipated Discharge Needs: cardiac/consistent CHO with ONS Follow-Up By: 06/20/19 Additional Comments F/U for PO/ONS intakes
--- NOTE | 2019-06-18 18:25 | Vascular Lab Report ---
Bilateral carotid Doppler. HISTORY: Stroke. History of carotid and arteritis mean. FINDINGS: Duplex Doppler evaluation of the carotid system was performed with spectral waveform analys is. Antegrade vertebral flow is present bilaterally. Peak systolic velocity at the right internal carotid artery is 70 cm/s. Systolic velocity ratio is 0. 7. Peak systolic velocity at the left internal carotid artery is 243 cm/s. End-diastolic velocity is 50 cm/s. Systolic velocity ratio is 3.1. Grayscale imaging demonstrates right densely calcified plaque at the left common carotid artery exten ding into the internal carotid artery. IMPRESSION: 1. Stenosis less than 50% at the right internal carotid artery per NASCET criteria. 2. Stenosis in the range of 50-69% at the left internal carotid artery per NASCET criteria. Signer Name: Triston Bill MD Signed: 06/18/2019 6:21 PM Workstation Name: [id number]
[2019-06-18] MEDS ORDERED: MAGNESIUM HYDROXIDE (MOM) ORAL LIQD UDC PO PRN (23:32)
[2019-06-19] MEDS: INSULIN LISPRO 100 UNIT/ML SUB-Q SCH ×3 (08:30→16:58)
[2019-06-19] MEDS: METOPROLOL TARTRATE 50 MG TAB PO SCH ×2 (08:41→14:59)
[2019-06-19] MEDS: RANOLAZINE ER 500 MG TAB 12HR PO SCH (10:25)
[2019-06-19] MEDS: FAMOTIDINE 20 MG TAB PO SCH (10:25)
[2019-06-19] MEDS: CYANOCOBALAMIN (VIT B-12) 1000 MCG TAB PO SCH (10:26)
[2019-06-19] MEDS: ASPIRIN 81 MG TAB CHEW PO SCH (10:26)
--- NOTE | 2019-06-19 12:40 | Progress Note ---
Assessment and Plan Patient is a 88-year-old man with a history of vascular dementia, TIA, dyslipidemia, PPM and type 2 DM who presented to [facility] ED with stroke like symptoms. As per his , his last known well time is 12:15 PM. Stroke deficits include left-sided weakness in the arm and leg, facial droop. He received tPA on 06/15/2019 around 1321. Symptoms resolved, doing well. 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 Follow-up on current diagnosis CVA. Overnight uneventful as no events directly reported to me. Patient denies any chest pain, shortness breath, nausea/vomiting or severe headaches. Imaging, nursing note, chart, labs and old chart reviewed. Discussed with patient with at bedside. Hospitalist Physical - Physical exam Narrative exam: Gen: thin frail, NAD, Awake, Alert, Orientated x 1 HEENT: NCAT, EOMI, PERRL, OP Clear Neck: supple, no adenopathy, no thyromegaly, no JVD CVS/Heart: RRR, normal S1S2, pulses present bilaterally Chest/Lungs: CTA B, Symmetrical chest expansion, good air entry bilaterally GI/Abdomen: soft, NTND, good bowel sounds, no guarding or rebound /Bladder: no suprapubic tenderness, no CVA or paraspinal tenderness Extermity/Skin: no c/c/e, no obvious rash MSK: FROM x 4 Neuro: CN 2-12 grossly intact, no new focal deficits Psych: calm Subjective Date of service: 06/19/19 Objective - Constitutional Vitals: Vital Signs - 12hr 06/19/19 06/19/19 06/19/19 07:40 08:41 08:51 Temperature 98.3 F Pulse Rate 73 73 Respiratory 18 20 Rate Blood Pressure 107/64 107/64 O2 Sat by Pulse 92 Oximetry 06/19/19 06/19/19 10:38 11:02 Temperature Pulse Rate Respiratory Rate Blood Pressure 107/61 107/61 O2 Sat by Pulse Oximetry - Labs CBC & Chem 7: 06/16/19 03:57 06/16/19 03:57 Labs: Abnormal lab results 06/18/19 06/18/19 06/19/19 Range/Units 16:37 21:42 07:48 POC Glucose 149 H 199 H 147 H (70-105) 06/19/19 Range/Units 11:29 POC Glucose 240 H (70-105)
[2019-06-19 14:53] VITALS: BP 107/60
--- NOTE | 2019-06-19 14:56 | Discharge Summary ---
Providers - Providers Date of Admission: 06/15/19 14:35 Date of discharge: 06/19/19 Attending physician: CHRISTIAN MARAVILLA 06/15/19 15:07 Speech Therapy Evaluation and Treat [CONS] Stat Reason For Exam: lethargic 06/15/19 20:27 Consult to Physician [CONS] Routine Comment: dr. sabino hunter./ [facility] Consulting Provider: TOM TENORIO Physician Instructions: Reason For Exam: Acute CVA 06/15/19 20:29 Occupational Therapy Evaluate and Treat [CONS] Routine Comment: Reason For Exam: Neuro deficits Physical Therapy Evaluation and Treat [CONS] Routine Comment: Reason For Exam: Neuro deficits 06/16/19 14:54 Consult to Physician [CONS] Routine Comment: called office. [facility] Consulting Provider: JACE SILVERMAN Physician Instructions: Reason For Exam: left ICA stenosis, s/p tPA for stroke 06/17/19 13:51 Consult to Case Management [CONS] Routine Services Needed at Discharge: Car Wash Supervisor Notified:: GLENNY Jamison Physician Instructions: SNF Placement as per family request: Please send out Roberto. Hospitalization Condition: Critical Hospital course: Patient is a 88-year-old man with a history of vascular dementia, TIA, dyslipidemia, PPM and type 2 DM who presented to [facility] ED with stroke like symptoms. As per his , his last known well time is 12:15 PM. Stroke deficits include left-sided weakness in the arm and leg, facial droop. He received tPA on 06/15/2019 around 1321. Symptoms resolved, doing well. 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 * CT head without contrast: No acute abnormality * pCXR: No acute findings Discharge diagnosis: Acute ischemic stroke s/p tPA: treat with ASA and statin, no MRI due to PPM present, Neurology following Hypertension: continue anti-hypertensives T2 DM: accucheck, ada diet, accuchecks Dyslipidemia: treat with statins H/o PPM High grade stenosis Left ICA: consulted Vascular Surgeon, input noted, medical management DVT ppx: start heparin DNR Disposition: await JOHN Hospitalist Physical Gen: thin frail, NAD, Awake, Alert, Orientated x 1 HEENT: NCAT, EOMI, PERRL, OP Clear Neck: supple, no adenopathy, no thyromegaly, no JVD CVS/Heart: RRR, normal S1S2, pulses present bilaterally Chest/Lungs: CTA B, Symmetrical chest expansion, good air entry bilaterally GI/Abdomen: soft, NTND, good bowel sounds, no guarding or rebound /Bladder: no suprapubic tenderness, no CVA or paraspinal tenderness Extermity/Skin: no c/c/e, no obvious rash MSK: FROM x 4 Neuro: CN 2-12 grossly intact, no new focal deficits Psych: calm Disposition: DC/[place]-03 SNF W [facility] Time spent for discharge: 34 minutes Core Measure Documentation - Palliative Care Palliative Care/ Comfort Measures: Not Applicable - Core Measures Any of the following diagnoses?: none Exam - Constitutional Vitals: Temp Pulse Resp BP Pulse Ox 98.3 F 73 20 107/61 92 06/19/19 07:40 06/19/19 08:41 06/19/19 08:51 06/19/19 11:02 06/19/19 07:40 Plan Activity: advance as tolerated Weight Bearing Status: Weight Bear as Tolerated Diet: low fat, low salt Special Instructions: record daily BP diary Follow up with: POOJA DANG [Other] - 3-5 Days
[2019-06-19] MEDS: CLOPIDOGREL 75 MG TAB PO SCH (16:59)
== END 2019-06-19 20:00 | DRG 62 ==
LOC: ED 12:50 → CC1 14:35 → 2B-ACE 06-16 16:46
PROVIDERS: ADMIT Internal Medicine; ATTEND Internal Medicine
PROC: 3E03317 Introduction of Other Thrombolytic into Peripheral Vein, Percutaneous Approach (ICD-10-PCS; principal; 2019-06-15)
PROC: 3E0234Z Introduction of Serum, Toxoid and Vaccine into Muscle, Percutaneous Approach (ICD-10-PCS; 2019-06-16)
DX: I63.232 Cerebral infarction due to unspecified occlusion or stenosis of left carotid arteries (principal); G81.94 Hemiplegia, unspecified affecting left nondominant side; E11.8 Type 2 diabetes mellitus with unspecified complications; I25.10 Atherosclerotic heart disease of native coronary artery without angina pectoris; Z66 Do not resuscitate; K21.9 Gastro-esophageal reflux disease without esophagitis; F03.90 Unspecified dementia, unspecified severity, without behavioral disturbance, psychotic disturbance, mood disturbance, and anxiety; E78.2 Mixed hyperlipidemia; I11.0 Hypertensive heart disease with heart failure; I50.9 Heart failure, unspecified; Z95.1 Presence of aortocoronary bypass graft; Z98.61 Coronary angioplasty status; Z95.0 Presence of cardiac pacemaker; I25.2 Old myocardial infarction; Z79.899 Other long term (current) drug therapy; Z79.82 Long term (current) use of aspirin; Z23 Encounter for immunization
CPT/HCPCS: 36415; 70450; 70496; 70498; 71045; 80048; 80053; 80061; 81001; 82550; 82553; 82962; 83036; 83735; 84484; 85025; 85610; 85670; 85730; 90732; 93005; 93010; 93306; 93880; G0378; A9270-GY; J1815; J2997; J7030; Q9967